=== PATIENT | female | born 1955 | race Caucasian/White ===

== ENCOUNTER 2017-08-07 16:55 | Emergency (ER) | payer OTHER ==
[~2017-08-07] VITALS: Ht 172.7 cm; Wt 78.1 kg
[~2017-08-07 16:55] MED LIST: OMEG10007 PO; ZOLP10TA6 PO; [UNRECOGNIZED DRUG - CODE] PO
[2017-08-07 16:56] VITALS: TEMP 37.2; Ht 172.7 cm; Wt 78.1 kg
[2017-08-07 17:13] VITALS: O2SAT 98
[2017-08-07] MEDS ORDERED: SODIUM CHLORIDE 0.9% 1000ML 1,000 ML IV ONE (17:15)
[2017-08-07 17:22] LABS: BASO % 0.3 %; BASO ABS # 0.02 K/uL (0-0.2); COMPLETE YES; EOS % 0.5 %; HEMATOCRIT 39.2 % (37-47); IG% 0.3 %; LYMPH % 32.8 %; LYMPH ABS # 2.47 K/uL (1.2-3.4); MEAN CELL VOLUME 87.5 fL (80-100); MEAN CORPUSCULAR HEMOGLOBIN 30.4 pg (25-34); MEAN CORPUSCULAR HGB CONC 34.7 g/dl (32-36); MEAN PLATELET VOLUME 9.9 fL (7.4-10.4); NEUT % 58.1 %; PLATELET COUNT 208 K/uL (130-400); RED BLOOD COUNT 4.48 M/uL (4.2-5.4); WHITE BLOOD COUNT 7.53 K/uL (4.8-10.8)
[2017-08-07 17:31] LABS: INR 0.9 (0.9-1.1); PROTHROMBIN TIME (PATIENT) 9.8 SECONDS (9.0-12.0)
[2017-08-07 17:33] LABS: POINT OF CARE TROPONIN I < 0.030 ng/ml (0-0.045)
--- NOTE | 2017-08-07 17:40 | DIAGNOSTIC IMAGING REPORT ---
CHEST ONE VIEW PORTABLE CLINICAL HISTORY: Atypical chest pain and leg swelling. COMPARISON STUDY: 06/11/2016 FINDINGS: The cardiac and mediastinal contours are normal. There is no evidence of focal pulmonary consolidation. There is no evidence of failure. No pleural effusions are visualized.[ IMPRESSION: No active disease in the chest. Electronically signed by: Krishna Woodall M.D. 08/07/2017 5:39 PM Dictated Date/Time: 08/07/2017 5:39 PM
[2017-08-07 17:57] LABS: BUN/CREATININE RATIO 18.1 (10-20); CALCIUM 8.8 mg/dl (8.5-10.1); CREATININE 0.97 mg/dl (0.60-1.20); POTASSIUM 3.8 mmol/L (3.5-5.1)
[2017-08-07] MEDS ORDERED: OPTIRAY 320 IV PRN (18:00)
--- NOTE | 2017-08-07 18:20 | DIAGNOSTIC IMAGING REPORT ---
ULTRASOUND VENOUS DOPPLER LWR EXT BILA CLINICAL HISTORY: Bilateral leg swelling. Recent plane flight. COMPARISON STUDY: No previous studies for comparison. FINDINGS: Real-time and color flow Doppler imaging were performed. Flow was seen within the femoral, popliteal and calf veins with no intraluminal thrombus demonstrated. The saphenous vein is patent. IMPRESSION: No evidence of lower extremity DVT. Electronically signed by: Krishna Woodall M.D. 08/07/2017 6:19 PM Dictated Date/Time: 08/07/2017 6:18 PM
--- NOTE | 2017-08-07 18:26 | DIAGNOSTIC IMAGING REPORT ---
CT ANGIOGRAM OF THE CHEST CLINICAL HISTORY: Shortness of breath. Elevated d-dimer. Recent airplane flight. COMPARISON STUDY: 06/11/2016 TECHNIQUE: Following the IV administration of 82 mL of Optiray-320, CT angiogram of the thorax was performed from the thoracic inlet to the lung bases utilizing the pulmonary embolus protocol. Images are reviewed in the axial, sagittal, and coronal planes. IV contrast was administered without complication. MIP imaging was performed. A dose lowering technique was utilized adhering to the principles of ALARA. CT DOSE: 241.64 mGy.cm FINDINGS: No pathologically enlarged axillary mediastinal or hilar lymph nodes were visualized. There was no evidence of thoracic aortic dilatation. There were no pulmonary artery filling defects to indicate acute pulmonary embolism. No pleural effusions are visualized. There are minimal dependent atelectatic changes present. There is pulmonary emphysema. There is no focal pulmonary consolidation. There is persistent right apical pleural-parenchymal scarring. There is a stable 2 mm dural based right middle lobe pulmonary nodule. There is a stable 3 mm right upper lobe pulmonary nodule. IMPRESSION: 1. No evidence of acute pulmonary embolism 2. No evidence of focal pulmonary consolidation 3. No evidence of pathologic adenopathy 4. Emphysema 5. Stable tiny right lung pulmonary nodules. No further follow-up is indicated. Electronically signed by: Krishna Woodall M.D. 08/07/2017 6:24 PM Dictated Date/Time: 08/07/2017 6:19 PM
[2017-08-07 18:54] VITALS: BP 142/84; PULSE 84; O2SAT 98
--- NOTE | 2017-08-09 14:05 | EMERGENCY ROOM VISIT NOTE ---
History First contact with patient: 16:59 Chief Complaint: SWELLING TO EXTREMITY Stated Complaint: LF FOOT SWOLLEN History of Present Illness The patient is a 62 year old female who presents to the Emergency Room with complaints of increasing swelling to her bilateral lower extremities over the past week. The patient states that she is having worsening swelling in her left leg when compared to the right. She does not have an injury or trauma. She does not report increased or change in activity. The patient states that she has been traveling via airplane recently. She will intermittently have vague episodes of chest discomfort, but they are often fleeting and resolve. The patient has not had fever or chills. No coughing. She has not taken anything [id number] for her symptoms which she rates a 2/10. Review of Systems More than 10 systems were reviewed and otherwise negative with the exception of history of present illness. Past Medical/Surgical History No pertinent chronic medical disease Family History FHx: VT FHx: cancer FHx: diabetes FHx: gallbladder disease FHx: hypertension FHx: kidney disease/stones FHx: pancreatitis FHx: seizures Social History Smoking Status: Never Smoker Alcohol Use: none Marital Status: Occupation Status: unemployed Current/Historical Medications Scheduled Docusate Sodium (Qc Stool Softener), 300 MG PO DAILY Scheduled PRN Zolpidem Tartrate (Zolpidem Tartrate), 10 MG PO HS PRN for Sleep Physical Exam Vital Signs Date Time Temp Pulse Resp B/P (MAP) Pulse Ox O2 Delivery O2 Flow Rate FiO2 08/07/17 18:54 84 20 142/84 98 08/07/17 18:40 71 20 142/84 96 Room Air 08/07/17 17:13 98 Room Air 08/07/17 16:56 37.2 85 18 133/85 96 Room Air Pain Rating (0-10): 0 Physical Exam VITALS: Vitals are noted on the nurse's note and reviewed by myself. Vital signs stable. GENERAL: Well-developed, well-nourished, white female, who is in no acute distress and resting comfortably. Patient is cooperative with the examination. NECK: Supple without nuchal rigidity. No lymphadenopathy. No thyromegaly. Cervical spine is nontender. HEART: Regular rate and rhythm without murmurs gallops or rubs. LUNGS: Clear to auscultation bilaterally without wheezes, rales or rhonchi. No retractions or accessory muscle use. ABDOMEN: Positive normal bowel sounds x 4. Soft, nontender, without masses or organomegaly. No guarding or rebound tenderness. MUSCULOSKELETAL: There is mild bilateral lower extremity edema with mild left calf tenderness. Pulses are intact distally. The patient is with full sensation and range of motion to large cavities. No obvious cellulitis or thrombophlebitis. No palpable cords. Medical Decision & Procedures ER Provider Diagnostic Interpretation: CHEST ONE VIEW PORTABLE CLINICAL HISTORY: Atypical chest pain and leg swelling. COMPARISON STUDY: 06/11/2016 FINDINGS: The cardiac and mediastinal contours are normal. There is no evidence of focal pulmonary consolidation. There is no evidence of failure. No pleural effusions are visualized.[ IMPRESSION: No active disease in the chest. CT ANGIOGRAM OF THE CHEST CLINICAL HISTORY: Shortness of breath. Elevated d-dimer. Recent airplane flight. COMPARISON STUDY: 06/11/2016 TECHNIQUE: Following the IV administration of 82 mL of Optiray-320, CT angiogram of the thorax was performed from the thoracic inlet to the lung bases utilizing the pulmonary embolus protocol. Images are reviewed in the axial, sagittal, and coronal planes. IV contrast was administered without complication. MIP imaging was performed. A dose lowering technique was utilized adhering to the principles of ALARA. CT DOSE: 241.64 mGy.cm FINDINGS: No pathologically enlarged axillary mediastinal or hilar lymph nodes were visualized. There was no evidence of thoracic aortic dilatation. There were no pulmonary artery filling defects to indicate acute pulmonary embolism. No pleural effusions are visualized. There are minimal dependent atelectatic changes present. There is pulmonary emphysema. There is no focal pulmonary consolidation. There is persistent right apical pleural-parenchymal scarring. There is a stable 2 mm dural based right middle lobe pulmonary nodule. There is a stable 3 mm right upper lobe pulmonary nodule. IMPRESSION: 1. No evidence of acute pulmonary embolism 2. No evidence of focal pulmonary consolidation 3. No evidence of pathologic adenopathy 4. Emphysema 5. Stable tiny right lung pulmonary nodules. No further follow-up is indicated. ULTRASOUND VENOUS DOPPLER LWR EXT BILA CLINICAL HISTORY: Bilateral leg swelling. Recent plane flight. COMPARISON STUDY: No previous studies for comparison. FINDINGS: Real-time and color flow Doppler imaging were performed. Flow was seen within the femoral, popliteal and calf veins with no intraluminal thrombus demonstrated. The saphenous vein is patent. IMPRESSION: No evidence of lower extremity DVT. Laboratory Results 08/07/17 17:10 Red Blood Count 4.48, Mean Corpuscular Volume 87.5, Mean Corpuscular Hemoglobin 30.4, Mean Corpuscular Hemoglobin Concent 34.7, Mean Platelet Volume 9.9, Neutrophils (%) (Auto) 58.1, Lymphocytes (%) (Auto) 32.8, Monocytes (%) (Auto) 8.0, Eosinophils (%) (Auto) 0.5, Basophils (%) (Auto) 0.3, Neutrophils # (Auto) 4.38, Lymphocytes # (Auto) 2.47, Monocytes # (Auto) 0.60, Eosinophils # (Auto) 0.04, Basophils # (Auto) 0.02 08/07/17 17:10 Test 08/07/17 17:10 08/07/17 17:13 White Blood Count 7.53 K/uL (4.8-10.8) Red Blood Count 4.48 M/uL (4.2-5.4) Hemoglobin 13.6 g/dL (12.0-16.0) Hematocrit 39.2 % (37-47) Mean Corpuscular Volume 87.5 fL (80-100) Mean Corpuscular Hemoglobin 30.4 pg (25-34) Mean Corpuscular Hemoglobin Concent 34.7 g/dl (32-36) Platelet Count 208 K/uL (130-400) Mean Platelet Volume 9.9 fL (7.4-10.4) Neutrophils (%) (Auto) 58.1 % Lymphocytes (%) (Auto) 32.8 % Monocytes (%) (Auto) 8.0 % Eosinophils (%) (Auto) 0.5 % Basophils (%) (Auto) 0.3 % Neutrophils # (Auto) 4.38 K/uL (1.4-6.5) Lymphocytes # (Auto) 2.47 K/uL (1.2-3.4) Monocytes # (Auto) 0.60 K/uL (0.11-0.59) Eosinophils # (Auto) 0.04 K/uL (0-0.5) Basophils # (Auto) 0.02 K/uL (0-0.2) RDW Standard Deviation 41.0 fL (36.4-46.3) RDW Coefficient of Variation 12.8 % (11.5-14.5) Immature Granulocyte % (Auto) 0.3 % Immature Granulocyte # (Auto) 0.02 K/uL (0.00-0.02) Prothrombin Time 9.8 SECONDS (9.0-12.0) Prothromb Time International Ratio 0.9 (0.9-1.1) Activated Partial Thromboplast Time 24.7 SECONDS (21.0-31.0) Partial Thromboplastin Ratio 1.0 Anion Gap 5.0 mmol/L (3-11) Est Creatinine Clear Calc Drug Dose 66.0 ml/min Estimated GFR () 72.5 Estimated GFR (Non- 62.6 BUN/Creatinine Ratio 18.1 (10-20) Calcium Level 8.8 mg/dl (8.5-10.1) Total Bilirubin 0.3 mg/dl (0.2-1) Aspartate Amino Transf (AST/SGOT) 31 U/L (15-37) Alanine Aminotransferase (ALT/SGPT) 46 U/L (12-78) Alkaline Phosphatase 103 U/L (45-117) Pro-B-Type Natriuretic Peptide 21 pg/ml (0-900) Total Protein 7.2 gm/dl (6.4-8.2) Albumin 3.6 gm/dl (3.4-5.0) Globulin 3.6 gm/dl (2.5-4.0) Albumin/Globulin Ratio 1.0 (0.9-2) Lipase 184 U/L (73-393) Bedside D-Dimer > 450 ng/mlFEU (0-450) Bedside Troponin I < 0.030 ng/ml (0-0.045) Medications Administered Medications (Trade) Dose Ordered Sig/Anabela Route Start Time Stop Time Status Last Admin Dose Admin Sodium Chloride 1,000 ml @ 999 mls/hr Q1H1M ONCE IV 08/07/17 17:15 08/07/17 18:15 DC 08/07/17 17:19 999 MLS/HR ECG Change: Normal sinus rhythm @70 bpm Right bundle branch block Abnormal ECG When compared with ECG of 11-JUN-2016 16:18, No significant change was found Confirmed by ANTHONY VILLAFANA MD ([id number]) on 08/08/2017 9:26:34 AM ED Course Physical exam and history were performed. Nursing notes, EMR, and Medication List were personally reviewed. Patient appears to have bilateral lower leg swelling with atypical intermittent chest discomfort. EKG was performed was a little sinus rhythm without acute ST elevation as above. IV access was established and labs were obtained. The patient was hydrated with normal saline. Chest x-ray and ultrasound were performed and the patient was placed on vehicle monitor technician. The patient's blood work is as above and was reviewed. She does not have a significant elevated white blood cell count, gross anemia, bandemia, or significant electrolyte imbalance. Troponin 1 is negative. D-dimer was elevated. Chest x-ray does not show acute process. Ultrasound was without evidence of DVT. Because of her travel symptoms and elevated dimer with atypical chest pain and did elect to perform a CT angiogram of the chest. CT scan did not show evidence of PE or other significant findings. They did show incidental pulmonary nodules, which are evidently stable and will not require further follow-up. This was discussed with the patient. Overall the patient appears nontoxic and seems well for discharge home. Her symptoms certainly could be a dependent edema. She does not appear to have infection or DVT/PE at this time. I do recommend that she follow closely with her primary care physician for further care and management. She was otherwise invited back to the ER with any new, worsening, or concerning symptoms. The chart was completed utilizing [employer] Voice Recognition Software. Grammatical errors, random word insertions, pronoun errors, and incomplete sentences are an occasional consequence of this system due to software limitations, ambient noise, and hardware issues. Any formal questions or concerns about the content, text, or information contained within the body of this dictation should be directly addressed to the provider for clarification. . Medical Decision Differential diagnosis includes, but is not limited to: Myocardial infarction, dysrhythmia, pericarditis, pneumothorax, aortic aneurysm/dissection, DVT/PE, anxiety, GERD, PUD, electrolyte imbalance, thyroid disorder, pneumonia, bronchitis, pancreatitis, and others Medication Reconcilliation Current Medication List: was personally reviewed by me Blood Pressure Screening Patient's blood pressure: Elevated blood pressure Blood pressure disposition: Did not require urgent referral Impression Primary Impression: Swelling of left extremity Additional Impression: Swelling of right extremity Departure Information Dispostion Home / Self-Care Condition GOOD Referrals Km Canas M.D. (PCP) Forms HOME CARE DOCUMENTATION FORM, IMPORTANT VISIT INFORMATION Patient Instructions My [facility] Additional Instructions You were seen and evaluated today on an emergency basis only. This is not a substitute for, or an effort to provide, complete comprehensive medical care. It is not possible to recognize and treat all injuries or illnesses in a single emergency department visit. For this reason it is recommended that you followup with your primary care physician in the next 3-5 days for recheck of your condition. You are welcome to return to the emergency department anytime with new, worsening, or concerning symptoms. Problem Qualifiers
== END 2017-08-07 18:55 | disposition home or self-care (01) ==
LOC: C.EDB 16:55 → C.EDA 18:55
DX: R60.0 Localized edema (principal); I45.10 Unspecified right bundle-branch block; R91.8 Other nonspecific abnormal finding of lung field; Z83.3 Family history of diabetes mellitus; Z82.49 Family history of ischemic heart disease and other diseases of the circulatory system; Z84.1 Family history of disorders of kidney and ureter; Z82.0 Family history of epilepsy and other diseases of the nervous system

== ENCOUNTER 2021-02-18 20:10 | Inpatient (IN) ==
[2021-02-18] MEDS ORDERED: ONDANSETRON INJ 2 MG/ML 2 ML VIAL IV STA (20:32)
[2021-02-18] MEDS ORDERED: MoRPHine SULFATE 4 MG/ML 1 ML CARP\\VIAL IV STA ×2 (20:32→22:21)
--- NOTE | 2021-02-18 20:41 | Emergency Department Note ---
Impression & Plan COVID-19, Chest pain, Pneumonia, Hypoxia ED Provider Note NAME: ARI CUI AGE: 65 SEX: F : 1955 ARRIVES VIA: Ambulance INFORMANT: Patient, ED PROVIDER(S): Ok Perez DO CHIEF COMPLAINT: Headache HPI: The patient is a 65-year-old female who presented to the emergency department for an evaluation of multiple complaints. The patient has been having symptoms for approximately 6 or 7 days. She describes a headache photosensitivity body aches chest pain difficulty breathing and cough. She states symptoms are moderate to severe. The patient was seen at [facility] this evening and had a Covid swab that was positive. She was then sent to the emergency department by ambulance because of her symptoms and because her blood pressure was very high. The patient states that she has been compliant with her outpatient medication regimen. She denies having any vomiting or GI symptoms at this time. She has had intermittent episodes of fever. The patient states her symptoms are moderate to severe. The patient is currently not been vaccinated for COVID-19. ROS: See above HPI for pertinent positives & negatives. A total of 10 systems reviewed and were otherwise negative. PAST MEDICAL HISTORY: See Below PAST SURGICAL HISTORY: See Below FAMILY HISTORY: See Below SOCIAL HISTORY: See Below HOME MEDICATIONS: See Below ALLERGIES: See Below VITALS: See Below PHYSICAL EXAMINATION: GENERAL: The patient is awake and alert. She is very anxious appearing. EYES: The conjunctivae are clear. The pupils are round and reactive. EARS, NOSE, MOUTH AND THROAT: The nose is without any evidence of any deformity. NECK: The neck is nontender and supple. RESPIRATORY: Diminished breath sounds are noted throughout. There was rhonchi noted throughout right greater than left. There is no tachypnea or conversational dyspnea. CARDIOVASCULAR: Regular rate and rhythm noted there no murmurs rubs or gallops normal S1 normal S2. GASTROINTESTINAL: The abdomen is soft. Abdomen is nontender. MUSCULOSKELETAL/EXTREMITIES: There is no evidence of gross deformity full range of motion is noted in the hips and shoulders. SKIN: There is no obvious evidence of any rash. There are no petechiae, pallor or cyanosis noted. NEUROLOGIC: Patient is awake alert and oriented x3 strength is symmetric pat ellar reflexes are 2+ bilaterally MEDICAL DECISION MAKING: The patient is an 65-year-old female who presented to the emergency department for an evaluation of body aches and fever. The patient was found to have signs of pneumonia on chest x-ray. She was treated with IV fluids and IV antibiotics in the emergency department. She also became hypoxic while she was in the emergency department. She is positive for COVID-19 however her infiltrate does not appear to be consistent with a typical COVID-19 infiltrate so she was also considered for bacterial pneumonia. I discussed the patient's laboratory and radiographic studies with her. I also discussed her case with the on-call [facility] hospitalist. They have agreed to evaluate the patient in the emergency department for further management and disposition. Triage Nursing notes reviewed. Prior medical records reviewed Vital Signs: reviewed and remarkable for hypoxia, fever, intermittent bradycardia. Differential diagnosis: Viral syndrome, otitis, pharyngitis, pneumonia, influenza, meningitis, urinary tract infection, sepsis, bacteremia, as well as other pathologies. ER treatment provided: See below Diagnostics interpreted by me: ECG: EKG was obtained in the emergency department. My interpretation is normal sinus rhythm at 69 bpm. There were no PVCs. A right bundle branch block pattern was noted. This was compared to a tracing from November 142017. There is an increase in the ventricular rate however no other significant changes were noted. A second EKG was obtained in the emergency department because of bradycardia. A second EKG reveals normal sinus rhythm at 63 bpm. Right bundle branch block was appreciated. There was no significant change compared to the earlier tracing. Cardiac Monitoring: An order was placed for continuous cardiac monitoring. The monitor shows a rate of 75 beats per with sinus rhythm. Laboratory studies: As stated above and show below. Imaging studies: See below Consultation(s): [id number]: I discussed this case with Dr. Waldron who is on-call for the [facility] hospitalist group. Past Med/Surg History Medical History (Updated 02/18/21 @ 23:30 by Ok Perez DO) GERD (gastroesophageal reflux disease) Hyperlipidemia Radiculitis of left cervical region Vitamin D deficiency Surgical History History of cholecystectomy (~06/20/15) Hx of colonoscopy (04/2008) Hx of eye surgery Hx of tubal ligation Family History Sister Breast cancer Cancer Colorectal cancer Hypertension Ovarian cancer Brother Cancer Colorectal cancer Father Cancer Diabetes Son Colorectal cancer Mother Dementia Hypertension Denies family history of Prostate cancer Myocardial infarction Social History Smoking Status: Never smoker Tobacco Type: Cigarettes Age Started Using Tobacco: 13; Age Quit Using Tobacco: 58; packs per day: 0.5; Years Smoked: 45; Cigarettes Per Day: 10-15; Number of Years Since Quit: 6; Second Hand Exposure: No; Hx Alcohol Use: No Hx Substance Use: Yes Preferred Language: [place] Visual Impairment: No Limitations Hearing Ability: Normal marital status: Current Living Situation: Spouse and Family current occupational status: unemployed Feels Safe at Home: Yes Dental Care, Regularly: No Physical Activity Frequency: Does not Exercise Seatbelt Use: always Allergies Allergies Allergy/AdvReac Type Severity Reaction Status Date / Time No Known Allergies Allergy NONE Verified 02/18/21 21:08 Home Meds Home Medications Medication Instructions Recorded Confirmed docusate sodium 300 mg PO DAILY 11/14/18 02/18/21 ibuprofen 400 mg PO BID PRN 11/14/18 02/18/21 acetaminophen [Tylenol] 650 mg PO DIRECTED PRN 02/18/21 02/18/21 ergocalciferol (vitamin D2) 50,000 unit PO WK 02/18/21 02/18/21 loratadine-pseudoephedrine 1 tab PO Q12H PRN 02/18/21 02/18/21 [Claritin-D 12 Hour] naproxen sodium [Aleve] 220 - 440 mg PO DIRECTED PRN 02/18/21 02/18/21 Previous Rx's Medication Instructions Recorded albuterol sulfate 90 mcg/actuation 2 puffs INH QID PRN #8.5 gm 04/18/20 aerosol inhaler zolpidem 10 mg tablet 10 mg PO HS PRN #30 tab 07/18/20 Results & Data (ED) Vital Signs Vital Signs - 24 hr 02/18/21 20:30 02/18/21 20:31 02/18/21 20:32 Temperature Temperature Source Pulse Rate 67 69 68 Pulse Rate [Apical] 67 Pulse Rate from SpO2 Sensor 67 69 Respiratory Rate 20 18 19 Respiratory Effort / Characteristics Non-Labored Spontaneous Respiratory Depth Normal Respiratory Pattern Regular Blood Pressure 147/77 H Blood Pressure [Right Arm] 147/77 H Blood Pressure Mean 100 Blood Pressure Mean [Right Arm] 100 Pulse Oximetry 92 92 92 Oxygen Delivery Method Room Air Sepsis Recent Fever Within 48 Hours Sepsis New/Unexplained Change in Mental Status Sepsis Action Taken by Nursing 02/18/21 20:39 02/18/21 21:00 02/18/21 21:30 Temperature 38.0 C H Temperature Source Oral Pulse Rate 65 70 50 L Pulse Rate [Apical] Pulse Rate from SpO2 Sensor 67 49 L Respiratory Rate 20 24 19 Respiratory Effort / Characteristics Non-Labored Spontaneous Respiratory Depth Normal Respiratory Pattern Regular Blood Pressure 147/77 H 130/56 L 107/54 L Blood Pressure [Right Arm] Blood Pressure Mean 100 80 71 Blood Pressure Mean [Right Arm] Pulse Oximetry 93 91 91 Oxygen Delivery Method Room Air Sepsis Recent Fever Within 48 Hours No Sepsis New/Unexplained Change in Mental Status No Sepsis Action Taken by Nursing No Action Required 02/18/21 22:00 02/18/21 22:29 02/18/21 22:30 Temperature Temperature Source Pulse Rate 55 L 58 L 62 Pulse Rate [Apical] Pulse Rate from SpO2 Sensor 55 L 63 Respiratory Rate 20 19 18 Respiratory Effort / Characteristics Respiratory Depth Respiratory Pattern Blood Pressure 141/73 H 141/73 H 146/71 H Blood Pressure [Right Arm] Blood Pressure Mean 95 95 96 Blood Pressure Mean [Right Arm] Pulse Oximetry 93 92 92 Oxygen Delivery Method Sepsis Recent Fever Within 48 Hours Sepsis New/Unexplained Change in Mental Status Sepsis Action Taken by Nursing 02/18/21 22:31 Temperature Temperature Source Pulse Rate 63 Pulse Rate [Apical] Pulse Rate from SpO2 Sensor 63 Respiratory Rate 19 Respiratory Effort / Characteristics Respiratory Depth Respiratory Pattern Blood Pressure 146/71 H Blood Pressure [Right Arm] Blood Pressure Mean 96 Blood Pressure Mean [Right Arm] Pulse Oximetry 87 L Oxygen Delivery Method Room Air Sepsis Recent Fever Within 48 Hours Sepsis New/Unexplained Change in Mental Status Sepsis Action Taken by Skilled Nursing Medications Current Medication List: was personally reviewed by me Laboratory Data Attestation: I reviewed the patient's lab results. Result diagrams: 02/18/21 20:48 02/18/21 20:48 Lab Results 02/18/21 02/18/21 02/18/21 Range/Units 20:48 20:48 20:48 WBC 4.93 (4.8-10.8) K/uL RBC 4.72 (4.2-5.4) M/uL Hgb 14.2 (12.0-16.0) g/dL Hct 40.8 (37-47) % MCV 86.4 (80-100) fL MCH 30.1 (25-34) pg MCHC 34.8 (32-36) g/dL RDW Std Deviation 42.9 (36.4-46.3) fL RDW Coeff of Josue 13.4 (11.5-14.5) % Plt Count 150 (130-400) K/uL MPV 9.7 (7.4-10.4) fL Immature Gran % (Auto) 0.4 % Neut % (Auto) 78.3 % Lymph % (Auto) 13.6 % Mckean % (Auto) 7.5 % Eos % (Auto) 0.0 % Baso % (Auto) 0.2 % Neut # (Auto) 3.86 (1.4-6.5) K/uL Lymph # (Auto) 0.67 L (1.2-3.4) K/uL Mckean # (Auto) 0.37 (0.11-0.59) K/uL Eos # (Auto) 0.00 (0-0.5) K/uL Baso # (Auto) 0.01 (0-0.2) K/uL Immature Gran # (Auto) 0.02 (0.00-0.02) K/uL PT 9.6 (9.0-12.0) Seconds INR 0.9 (0.9-1.1) APTT 28.8 (21.0-31.0) Seconds PTT Ratio 1.1 D-Dimer 570 H* (0-500) ug/L FEU Sodium 137 (136-145) mmol/L Potassium 3.3 L (3.5-5.1) mmol/L Chloride 105 (98-107) mmol/L Carbon Dioxide 26 (21-32) mmol/L Anion Gap 6.0 (3-11) BUN 13 (7-18) mg/dl Creatinine 0.77 (0.6-1.2) mg/dl Est Cr Clr Drug Dosing 82.0 ml/min Est GFR ( Amer) 93.9 Est GFR (Non-Af Amer) 81.0 BUN/Creatinine Ratio 17.1 (10-20) Glucose 87 (70-99) mg/dl Calcium 7.9 L (8.5-10.1) mg/dl Total Bilirubin 0.3 (0.2-1) mg/dl AST 22 (15-37) U/L ALT 26 (12-78) U/L Alkaline Phosphatase 106 (45-117) U/L Troponin I < 0.015 (0-0.045) ng/ml Total Protein 6.7 (6.4-8.2) gm/dl Albumin 3.2 L (3.4-5.0) gm/dl Globulin 3.5 (2.5-4.0) gm/dl Albumin/Globulin Ratio 0.9 (0.9-2) Lipase 182 (73-393) U/L COVID-19 Eval Order SARS-CoV-2 (PCR) (Negative) Influenza Type A (PCR) (Neg) Influenza Type B (PCR) (Neg) RSV (RT-PCR) (Neg) 02/18/21 02/18/21 Range/Units 21:47 21:47 WBC (4.8-10.8) K/uL RBC (4.2-5.4) M/uL Hgb (12.0-16.0) g/dL Hct (37-47) % MCV (80-100) fL MCH (25-34) pg MCHC (32-36) g/dL RDW Std Deviation (36.4-46.3) fL RDW Coeff of Josue (11.5-14.5) % Plt Count (130-400) K/uL MPV (7.4-10.4) fL Immature Gran % (Auto) % Neut % (Auto) % Lymph % (Auto) % Mckean % (Auto) % Eos % (Auto) % Baso % (Auto) % Neut # (Auto) (1.4-6.5) K/uL Lymph # (Auto) (1.2-3.4) K/uL Mckean # (Auto) (0.11-0.59) K/uL Eos # (Auto) (0-0.5) K/uL Baso # (Auto) (0-0.2) K/uL Immature Gran # (Auto) (0.00-0.02) K/uL PT (9.0-12.0) Seconds INR (0.9-1.1) APTT (21.0-31.0) Seconds PTT Ratio D-Dimer (0-500) ug/L FEU Sodium (136-145) mmol/L Potassium (3.5-5.1) mmol/L Chloride (98-107) mmol/L Carbon Dioxide (21-32) mmol/L Anion Gap (3-11) BUN (7-18) mg/dl Creatinine (0.6-1.2) mg/dl Est Cr Clr Drug Dosing ml/min Est GFR ( Amer) Est GFR (Non-Af Amer) BUN/Creatinine Ratio (10-20) Glucose (70-99) mg/dl Calcium (8.5-10.1) mg/dl Total Bilirubin (0.2-1) mg/dl AST (15-37) U/L ALT (12-78) U/L Alkaline Phosphatase (45-117) U/L Troponin I (0-0.045) ng/ml Total Protein (6.4-8.2) gm/dl Albumin (3.4-5.0) gm/dl Globulin (2.5-4.0) gm/dl Albumin/Globulin Ratio (0.9-2) Lipase (73-393) U/L COVID-19 Eval Order [facility] at [facility] SARS-CoV-2 (PCR) POSITIVE A* (Negative) Influenza Type A (PCR) Negative (Neg) Influenza Type B (PCR) Negative (Neg) RSV (RT-PCR) Negative (Neg) Administered Medications Discontinued Medications Dexamethasone Sodium Phosphate (DexamethasonePf 10 Mg/Ml Vial) 10 mg IV NOW ONE Stop: 02/18/21 21:43 Last Admin: 02/18/21 22:00 Dose: 10 mg Documented by: [id number] Sodium Chloride (Nss 1000ml) 1,000 mls @ 999 mls/hr IV .Q1H1M ONE Stop: 02/18/21 22:25 Last Infusion: 02/18/21 23:05 Dose: 0 mls/hr Documented by: [id number] Admin: 02/18/21 22:01 Dose: 999 mls/hr Documented by: [id number] Sodium Chloride (Nss 1000ml) 1,000 mls @ 999 mls/hr IV .Q1H1M ONE Stop: 02/18/21 22:41 Last Infusion: 02/18/21 22:54 Dose: 0 mls/hr Documented by: [id number] Admin: 02/18/21 21:49 Dose: 999 mls/hr Documented by: [id number] Piperacillin Sod/Tazobactam Sod (Zosyn) 4.5 gm in 120 mls @ 240 mls/hr IV NOW ONE Stop: 02/18/21 22:11 Last Infusion: 02/18/21 22:30 Dose: 0 mls/hr Documented by: [id number] Admin: 02/18/21 22:00 Dose: 240 mls/hr Documented by: [id number] Morphine Sulfate (Morphine Sulfate 4 Mg/Ml 1 Ml Carp\Vial) 4 mg IV NOW STA Stop: 02/18/21 20:33 Last Admin: 02/18/21 20:44 Dose: 4 mg Documented by: [id number] Morphine Sulfate (Morphine Sulfate 4 Mg/Ml 1 Ml Carp\Vial) 4 mg IV NOW STA Stop: 02/18/21 22:22 Last Admin: 02/18/21 22:35 Dose: 4 mg Documented by: [id number] Ondansetron HCl (Ondansetron Inj 2 Mg/Ml 2 Ml Vial) 4 mg IV NOW STA Stop: 02/18/21 20:33 Last Admin: 02/18/21 20:44 Dose: 4 mg Documented by: [id number] Imaging Data Radiologist's Impression: Chest X-Ray 02/18/21 20:32 XR chest 1V portable HISTORY: Atypical Chest Pain COMPARISON: Chest 11/14/2018. FINDINGS: There is a hazy peripheral right upper lobe airspace opacity. No pneumothorax. No pleural effusions. The heart is top normal in size. The left lung is clear. No evidence for pulmonary edema. Old, healed left-sided rib fracture, unchanged. IMPRESSION: A new hazy right upper lobe airspace opacity consistent with a pneumonia. 1-2 month chest x-ray follow-up recommended to ensure resolution. ACT 112: Negative or not required by law. Electronically signed by: Humberto Wells M.D. 02/18/2021 9:02 PM Discharge Plan Visit Data Chief Complaint: Illness Stated Complaint: COVID + CP ED Provider: Ok Perez Discharge Problem: COVID-19, Chest pain, Pneumonia, Hypoxia Patient Disposition: Being Evaluated by Hospitalist Condition: Good Discharge Instructions Krames/Other Patient Handouts: 2019-nCoV Forms Stand Alone Forms: My Mobile Card Prescriptions Prescriptions: No Action zolpidem 10 mg tablet 10 mg PO HS PRN (Reason: Insomnia) Qty: 30 RF: 5 albuterol sulfate [ProAir HFA] 90 mcg/actuation HFA aerosol inhaler 2 puffs INH QID PRN (Reason: shortness of breath) Qty: 8.5 RF: 2 ibuprofen 400 mg Tablet 400 mg PO BID PRN (Reason: Pain) RF: 0 docusate sodium 100 mg Capsule 300 mg PO DAILY RF: 0 acetaminophen [Tylenol] 325 mg Tablet 650 mg PO DIRECTED PRN (Reason: FEVER/PAIN) RF: 0 naproxen sodium [Aleve] 220 mg Tablet 220 - 440 mg PO DIRECTED PRN (Reason: Pain) RF: 0 Claritin-D 12 Hour 5-120 mg tablet extended release 12 hr 1 tab PO Q12H PRN (Reason: Congestion) RF: 0 ergocalciferol (vitamin D2) 1,250 mcg (50,000 unit) capsule 50,000 unit PO WK RF: 0 Referrals Referrals: Km Canas III, MD [Primary Care Provider] - Discharge Problem: Chest pain Qualifiers: Chest pain type: unspecified Qualified Code(s): R07.9 - Chest pain, unspecified Pneumonia Qualifiers: Pneumonia type: due to unspecified organism Laterality: right Lung location: upper lobe of lung Qualified Code(s): J18.9 - Pneumonia, unspecified organism
[2021-02-18 20:57] LABS: Basophils # (auto) 0.01 K/uL (0-0.2); Basophils % (auto) 0.2 %; Hematocrit (blood only) 40.8 % (37-47); Hemoglobin 14.2 g/dL (12.0-16.0); Immature Granulocytes # (auto) 0.02 K/uL (0.00-0.02); Immature Granulocytes % (auto) 0.4 %; Lymphocytes # (auto) 0.67 K/uL (1.2-3.4); Lymphocytes % (auto) 13.6 %; Mean Corpuscular Hemoglobin 30.1 pg (25-34); Mean Corpuscular Hgb Conc 34.8 g/dL (32-36); Mean Corpuscular Volume 86.4 fL (80-100); Mean Platelet Volume 9.7 fL (7.4-10.4); Monocytes # (auto) 0.37 K/uL (0.11-0.59); Monocytes % (auto) 7.5 %; Neutrophils # (auto) 3.86 K/uL (1.4-6.5); Neutrophils % (auto) 78.3 %; Platelet Count 150 K/uL (130-400); RDW Coefficient of Variation 13.4 % (11.5-14.5); RDW Standard Deviation 42.9 fL (36.4-46.3); Red Blood Count 4.72 M/uL (4.2-5.4); White Blood Count 4.93 K/uL (4.8-10.8)
--- NOTE | 2021-02-18 21:03 | XRay Report ---
XR chest 1V portable HISTORY: Atypical Chest Pain COMPARISON: Chest 11/14/2018. FINDINGS: There is a hazy peripheral right upper lobe airspace opacity. No pneumothorax. No pleural e ffusions. The heart is top normal in size. The left lung is clear. No evidence for pulmonary edema. O ld, healed left-sided rib fracture, unchanged. IMPRESSION: A new hazy right upper lobe airspace opacity consistent with a pneumonia. 1-2 month chest x-ray follo w-up recommended to ensure resolution. ACT 112: Negative or not required by law. Electronically signed by: Humberto Wells M.D. 02/18/2021 9:02 PM
[2021-02-18 21:08] LABS: INR 0.9 (0.9-1.1); Partial Thromboplastin Ratio 1.1; Partial Thromboplastin Time 28.8 Seconds (21.0-31.0); Prothrombin Time 9.6 Seconds (9.0-12.0)
[2021-02-18 21:13] LABS: Alanine Aminotransferase 26 U/L (12-78); Albumin Level 3.2 gm/dl (3.4-5.0); Aspartate Aminotransferase 22 U/L (15-37); BUN Creatinine Ratio 17.1 (10-20); Blood Urea Nitrogen 13 mg/dl (7-18); Calcium 7.9 mg/dl (8.5-10.1); Carbon Dioxide 26 mmol/L (21-32); Chloride 105 mmol/L (98-107); Est GFR (African American) 93.9; Glucose 87 mg/dl (70-99); Lipase 182 U/L (73-393); Potassium 3.3 mmol/L (3.5-5.1); Sodium 137 mmol/L (136-145)
[2021-02-18 21:15] LABS: D Dimer 570 ug/L FEU (0-500)
[2021-02-18 21:18] LABS: Albumin Globulin Ratio 0.9 (0.9-2); Alkaline Phosphatase 106 U/L (45-117); Bilirubin,Total 0.3 mg/dl (0.2-1); Globulin 3.5 gm/dl (2.5-4.0); Total Protein 6.7 gm/dl (6.4-8.2); Troponin I < 0.015 ng/ml (0-0.045)
[2021-02-18] MEDS ORDERED: SODIUM CHLORIDE 0.9% 1000ML 1,000 ML IV ONE ×2 (21:25→21:41)
[2021-02-18] MEDS ORDERED: dexAMETHasone**PF** 10 MG/ML VIAL IV ONE (21:42)
[2021-02-18] MEDS ORDERED: PIPERACILL/TAZOBAC CONSULT ACTIVE PRN (21:42)
[2021-02-18] MEDS ORDERED: PIPERACILLIN/TAZOBACTAM 4.5 GM/120 ML BAG IV ONE (21:42)
[2021-02-18 22:37] LABS: Influenza A virus by PCR Negative (Neg); Influenza B virus by PCR Negative (Neg); RSV by PCR Negative (Neg)
[2021-02-18 22:47] LABS: SARS CoV2 RNA(COVID-19) InHosp POSITIVE (Negative)
--- NOTE | 2021-02-18 23:08 | History & Physical Report ---
Date of Service February 18, 2021 Assessment & Plan (1) COVID-19: 65yo C female presenting with Covid-19 pneumonia. Patient is febrile, acute hypoxic respiratory failure with SpO2 of 87% on room air. Labs are significant for lymphopenia, Ddimer of 570 which is below threshold for age adjusted value. CXR with RUL airspace density concerning for PNA. -Admit to medical floor with telemetry monitoring -Maintain Covid-19 isolation precautions - Airborne and Contact -Check BNP, Procalcitonin, Ferritin, CK, LDH and CRP -Supplemental O2 as needed to maintain SpO2 > 96% -Encourage patient proning as tolerated -Dexamethasone 6mg IV daily - patient received 10mg dose in ER -Remdesivir x 5 day per protocol. AST/ALT and renal function are within normal limits -Tylenol PRN pain or fever -Tessalon PRN cough -Albuterol HFA PRN SOB -Oxycodone PRN pain not relieved by Tylenol -Lovenox 40mg BID for DVT ppx Present on Admission?: Yes (2) Abdominal pain: Patient with history of abdominal pain. LFTs and Lipase WNL. Suspect GERD contributing. Abdomen is soft, tender but non-acute. -Maalox PRN -Repeat LFTs in AM Present on Admission?: Yes (3) Arrhythmia: Patient with episodes of regularly irregular grouped beating occurring in couplets and occasionally triplets. Suspect Wenkebach or ectopic atrial focus? Patient states she was first told that she had a "funny rhythm" 20 years ago. She has never seen a corporate administrative assistant before. -Telemetry monitoring -Maintain electrolytes -Consider Cardiology evaluation Present on Admission?: Yes (4) GERD (gastroesophageal reflux disease): Chronic. Suspect GERD is somewhat contributing to patients upper abdominal pain -Maalox PRN Present on Admission?: Yes (5) Vitamin D deficiency: Chronic -Continue weekly supplementation F/E/N - Patient given IVF in ER. Encourage PO intake. K repletion with Kdur 40mEq, Regular diet as tolerated Ppx - Lovenox 40 BID Code - Full per discussion with patient DIspo - Admit to medical with telemetry Present on Admission?: Yes History of Present Illness Chief Complaint: body pain, headache Primary Care Provider: Km Canas MD Courtney Torre is a 65yo female presenting with diffuse body aches, cough, SOB. Patient began developing symptoms appx 3 days ago - body aches, headache, chest pain, cough productive for yellow sputum and abdominal pain. She had some vomi ting as well. Symptoms persisted. She was tested for Covid-19 today at [facility] and found to be positive. She was sent to [facility] because her blood pressure was reportedly elevated. Patient's main complaint at this time is upper abdominal pain and muscle pain diffusely. Patient febrile in the ER at 38. She is bradycardic, BP stable. RR of 19 saturating 87% on room air ER Course: Dexamethasone, Morphine, Zofran, Zosyn Allergies Allergy/AdvReac Type Severity Reaction Status Date / Time No Known Allergies Allergy NONE Verified 02/18/21 21:08 Home Medications Medication Instructions Recorded Confirmed Type docusate sodium 300 mg PO DAILY 11/14/18 02/18/21 History ibuprofen 400 mg PO BID PRN 11/14/18 02/18/21 History albuterol sulfate 90 mcg/actuation 2 puffs INH QID PRN #8.5 gm 04/18/20 02/18/21 Rx aerosol inhaler zolpidem 10 mg tablet 10 mg PO HS PRN #30 tab 07/18/20 02/18/21 Rx acetaminophen [Tylenol] 650 mg PO DIRECTED PRN 02/18/21 02/18/21 History ergocalciferol (vitamin D2) 50,000 unit PO WK 02/18/21 02/18/21 History loratadine-pseudoephedrine 1 tab PO Q12H PRN 02/18/21 02/18/21 History [Claritin-D 12 Hour] naproxen sodium [Aleve] 220 - 440 mg PO DIRECTED PRN 02/18/21 02/18/21 History Past Med/Surg History Medical History (Updated 02/18/21 @ 23:24 by Shantel Waldron DO) GERD (gastroesophageal reflux disease) Hyperlipidemia Radiculitis of left cervical region Vitamin D deficiency Surgical History History of cholecystectomy (~06/20/15) Hx of colonoscopy (04/2008) Hx of eye surgery Hx of tubal ligation Family History Sister Breast cancer Cancer Colorectal cancer Hypertension Ovarian cancer Brother Cancer Colorectal cancer Father Cancer Diabetes Son Colorectal cancer Mother Dementia Hypertension Denies family history of Prostate cancer Myocardial infarction Social History Smoking Status: Never smoker Tobacco Type: Cigarettes Age Started Using Tobacco: 13; Age Quit Using Tobacco: 58; packs per day: 0.5; Years Smoked: 45; Cigarettes Per Day: 10-15; Number of Years Since Quit: 6; Second Hand Exposure: No; Hx Alcohol Use: No Hx Substance Use: Yes Preferred Language: Fijian Visual Impairment: No Limitations Hearing Ability: Normal marital status: Current Living Situation: Spouse and Family current occupational status: unemployed Feels Safe at Home: Yes Dental Care, Regularly: No Physical Activity Frequency: Does not Exercise Seatbelt Use: always Review of Systems Review of Systems: All systems reviewed & are unremarkable except as noted in HPI & below +CP, palpitations, cough, SOB +Headache, photophobia +Muscle pains +Abdominal pain Physical Exam Physical Exam: General: patient resting comfortably with towel over her head, alert and appropriate Skin: warm, dry, intact, no rashes or lesions HEENT: NC/AT, external ear normal to inspection and nontender, nares patent, moist mucus membranes, dentition intact, no oropharyngeal lesions, neck supple, trachea midline, no LAD, no thyromegaly, no JVD Heart: +S1/S2, regular with ectopy, no m/r/g Lungs: equal air entry bilaterally, crackles in left base, diffuse end- expiratory wheezing in bilateral posterior lung montesinos Abd: +BS, soft, ND, tender to palpation in epigastric region, no hakan s/organomegaly/ascites Ext: warm, 2+ pulses in UE/LE bilaterally, no clubbing/cyanosis or edema Neuro: nonfocal, patient AA&O x 4, speech intact, no facial droop, moving all extremities on command with equal strength 5/5 Results & Data Results & Data ([facility]) Vital Signs (Past 12 Hours) Vital Signs Temp Pulse Pulse Resp BP BP Pulse Ox 02/18/21 22:31 63 19 146/71 H 87 L 02/18/21 22:30 62 18 146/71 H 92 02/18/21 22:29 58 L 19 141/73 H 92 02/18/21 22:00 55 L 20 141/73 H 93 02/18/21 21:30 50 L 19 107/54 L 91 02/18/21 21:00 70 24 130/56 L 91 02/18/21 20:39 38.0 C H 65 20 147/77 H 93 02/18/21 20:32 68 19 92 02/18/21 20:31 69 18 147/77 H 92 02/18/21 20:30 67 67 20 147/77 H 92 Laboratory Results Lab Results 02/18/21 02/18/21 02/18/21 Range/Units 20:48 20:48 20:48 WBC 4.93 (4.8-10.8) K/uL RBC 4.72 (4.2-5.4) M/uL Hgb 14.2 (12.0-16.0) g/dL Hct 40.8 (37-47) % MCV 86.4 (80-100) fL MCH 30.1 (25-34) pg MCHC 34.8 (32-36) g/dL RDW Std Deviation 42.9 (36.4-46.3) fL RDW Coeff of Josue 13.4 (11.5-14.5) % Plt Count 150 (130-400) K/uL MPV 9.7 (7.4-10.4) fL Immature Gran % (Auto) 0.4 % Neut % (Auto) 78.3 % Lymph % (Auto) 13.6 % [place] % (Auto) 7.5 % Eos % (Auto) 0.0 % Baso % (Auto) 0.2 % Neut # (Auto) 3.86 (1.4-6.5) K/uL Lymph # (Auto) 0.67 L (1.2-3.4) K/uL [place] # (Auto) 0.37 (0.11-0.59) K/uL Eos # (Auto) 0.00 (0-0.5) K/uL Baso # (Auto) 0.01 (0-0.2) K/uL Immature Gran # (Auto) 0.02 (0.00-0.02) K/uL PT 9.6 (9.0-12.0) Seconds INR 0.9 (0.9-1.1) APTT 28.8 (21.0-31.0) Seconds PTT Ratio 1.1 D-Dimer 570 H* (0-500) ug/L FEU Sodium 137 (136-145) mmol/L Potassium 3.3 L (3.5-5.1) mmol/L Chloride 105 (98-107) mmol/L Carbon Dioxide 26 (21-32) mmol/L Anion Gap 6.0 (3-11) BUN 13 (7-18) mg/dl Creatinine 0.77 (0.6-1.2) mg/dl Est Cr Clr Drug Dosing 82.0 ml/min Est GFR ( Amer) 93.9 Est GFR (Non-Af Amer) 81.0 BUN/Creatinine Ratio 17.1 (10-20) Glucose 87 (70-99) mg/dl Calcium 7.9 L (8.5-10.1) mg/dl Total Bilirubin 0.3 (0.2-1) mg/dl AST 22 (15-37) U/L ALT 26 (12-78) U/L Alkaline Phosphatase 106 (45-117) U/L Troponin I < 0.015 (0-0.045) ng/ml Total Protein 6.7 (6.4-8.2) gm/dl Albumin 3.2 L (3.4-5.0) gm/dl Globulin 3.5 (2.5-4.0) gm/dl Albumin/Globulin Ratio 0.9 (0.9-2) Lipase 182 (73-393) U/L COVID-19 Eval Order SARS-CoV-2 (PCR) (Negative) Influenza Type A (PCR) (Neg) Influenza Type B (PCR) (Neg) RSV (RT-PCR) (Neg) 02/18/21 02/18/21 Range/Units 21:47 21:47 WBC (4.8-10.8) K/uL RBC (4.2-5.4) M/uL Hgb (12.0-16.0) g/dL Hct (37-47) % MCV (80-100) fL MCH (25-34) pg MCHC (32-36) g/dL RDW Std Deviation (36.4-46.3) fL RDW Coeff of Josue (11.5-14.5) % Plt Count (130-400) K/uL MPV (7.4-10.4) fL Immature Gran % (Auto) % Neut % (Auto) % Lymph % (Auto) % [place] % (Auto) % Eos % (Auto) % Baso % (Auto) % Neut # (Auto) (1.4-6.5) K/uL Lymph # (Auto) (1.2-3.4) K/uL [place] # (Auto) (0.11-0.59) K/uL Eos # (Auto) (0-0.5) K/uL Baso # (Auto) (0-0.2) K/uL Immature Gran # (Auto) (0.00-0.02) K/uL PT (9.0-12.0) Seconds INR (0.9-1.1) APTT (21.0-31.0) Seconds PTT Ratio D-Dimer (0-500) ug/L FEU Sodium (136-145) mmol/L Potassium (3.5-5.1) mmol/L Chloride (98-107) mmol/L Carbon Dioxide (21-32) mmol/L Anion Gap (3-11) BUN (7-18) mg/dl Creatinine (0.6-1.2) mg/dl Est Cr Clr Drug Dosing ml/min Est GFR ( Amer) Est GFR (Non-Af Amer) BUN/Creatinine Ratio (10-20) Glucose (70-99) mg/dl Calcium (8.5-10.1) mg/dl Total Bilirubin (0.2-1) mg/dl AST (15-37) U/L ALT (12-78) U/L Alkaline Phosphatase (45-117) U/L Troponin I (0-0.045) ng/ml Total Protein (6.4-8.2) gm/dl Albumin (3.4-5.0) gm/dl Globulin (2.5-4.0) gm/dl Albumin/Globulin Ratio (0.9-2) Lipase (73-393) U/L COVID-19 Eval Order CovFluRsv at [facility] SARS-CoV-2 (PCR) POSITIVE A* (Negative) Influenza Type A (PCR) Negative (Neg) Influenza Type B (PCR) Negative (Neg) RSV (RT-PCR) Negative (Neg) Diagnostic Findings R chest 1V portable HISTORY: Atypical Chest Pain COMPARISON: Chest 11/14/2018. FINDINGS: There is a hazy peripheral right upper lobe airspace opacity. No p neumothorax. No pleural effusions. The heart is top normal in size. The left lung is clear. No evidence for pulmonary edema. Old, healed left-sided rib fracture, unchanged. IMPRESSION: A new hazy right upper lobe airspace opacity consistent with a pneumonia. 1-2 month chest x-ray follow-up recommended to ensure resolution. ACT 112: Negative or not required by law. Electronically signed by: Humberto Wells M.D. 02/18/2021 9:02 PM Dictated: 02/18/212101Transcribed: 02/18/212101 ECG Additional Comments: EKG wtih NSR at 63, normal axis, XA=652, VYO=262, SUw=972, RBBB present Review of laboratory monitor shows episodes of regularly irregular pattern of narrow complex beats present in couplets, occasionally triplets, p waves present Code Status & VTE Plan VTE Prophylaxis Plan VTE Prophylaxis will be ordered: Yes PG Care Time/CCT Total # of Minutes Spent Total Time Spent with Patient: Total time spent is greater than 50% in coordination of care (as documented) at patient's floor/unit and/or counseling patient: Coding Level of Care Code 77518 Initial Inpt Care Lvl 3 Diagnoses COVID-19 U07.1 Abdominal pain R10.10 Abdominal location: upper abdomen, unspecified Arrhythmia I49.9 Arrhythmia type: unspecified cardiac arrhythmia GERD (gastroesophageal reflux disease) K21.9 Esophagitis presence: esophagitis presence not specified Vitamin D deficiency E55.9 (1) GERD (gastroesophageal reflux disease) Esophagitis presence: esophagitis presence not specified Qualified Code(s): K21.9 - Gastro-esophageal reflux disease without esophagitis (2) Abdominal pain Abdominal location: upper abdomen, unspecified Qualified Code(s): R10.10 - Upper abdominal pain, unspecified (3) Arrhythmia Arrhythmia type: unspecified cardiac arrhythmia Qualified Code(s): I49.9 - Cardiac arrhythmia, unspecified
[2021-02-19] MEDS ORDERED: oxyCODONE HCL IR 5 MG TAB (IMMEDIATE RELEASE) PO PRN (00:48)
[2021-02-19] MEDS ORDERED: ALUMINUM/MAGNESIUM SUSP 30 ML UDC PO PRN (00:48)
[2021-02-19] MEDS ORDERED: ZOLPIDEM TARTRATE 10 MG TAB PO PRN (00:48)
[2021-02-19] MEDS ORDERED: POTASSIUM CHLORIDE CRTAB 20 MEQ TABCR PO STA (00:48)
[2021-02-19] MEDS ORDERED: ALBUTEROL HFA 8 GM INHALER INH PRN (01:03)
[2021-02-19] MEDS ORDERED: REMDESIVIR 200 MG in SODIUM CHLORIDE 0.9% 210 ML IV ONE (01:30)
[2021-02-19 01:56] LABS: Creatine Kinase 32 U/L (26-192); Ferritin 276.3 ng/ml (8-388); Magnesium 2.1 mg/dl (1.8-2.4); NT Pro B Type Natriuretic Pept 94 pg/ml (0-900); Phosphorus 2.6 mg/dl (2.5-4.9)
[2021-02-19 07:41] LABS: Hematocrit (blood only) 43.8 % (37-47); Hemoglobin 14.7 g/dL (12.0-16.0); Immature Granulocytes # (auto) 0.01 K/uL (0.00-0.02); Immature Granulocytes % (auto) 0.3 %; Lymphocytes # (auto) 0.46 K/uL (1.2-3.4); Lymphocytes % (auto) 13.1 %; Mean Corpuscular Hemoglobin 29.6 pg (25-34); Mean Corpuscular Hgb Conc 33.6 g/dL (32-36); Mean Corpuscular Volume 88.1 fL (80-100); Mean Platelet Volume 10.1 fL (7.4-10.4); Monocytes # (auto) 0.14 K/uL (0.11-0.59); Neutrophils # (auto) 2.91 K/uL (1.4-6.5); Neutrophils % (auto) 82.6 %; Platelet Count 146 K/uL (130-400); RDW Coefficient of Variation 13.7 % (11.5-14.5); RDW Standard Deviation 44.2 fL (36.4-46.3); Red Blood Count 4.97 M/uL (4.2-5.4); White Blood Count 3.52 K/uL (4.8-10.8)
[2021-02-19] MEDS ORDERED: PNEUMOCOCCAL Polysaccharide Vaccine 25mcg/0.5mL vial/Syr IM ONE (08:00)
[2021-02-19 08:17] LABS: BUN Creatinine Ratio 13.6 (10-20); Calcium 8.1 mg/dl (8.5-10.1); Creatinine Clr Calc Pharmacy 75.6 ml/min; Est GFR (Non-African American) 75.1; Potassium 4.1 mmol/L (3.5-5.1)
[2021-02-19] MEDS: guaiFENesin 600 MG TABCR PO SCH ×2 (08:40→20:54)
[2021-02-19] MEDS: ENOXAPARIN INJ 40 MG/0.4 ML SYR SQ SCH ×2 (08:41→20:54)
[2021-02-19] MEDS: dexAMETHasone 6 MG in SYRINGE 0 ML IV SCH (08:41)
[2021-02-19] MEDS: BENZONATATE 100 MG CAPSULE PO PRN (08:54)
[2021-02-19] MEDS: ACETAMINOPHEN 325 MG TAB PO PRN (08:54)
--- NOTE | 2021-02-19 14:36 | Electrocardiogram Report ---
Test Reason : Blood Pressure : / mmHG Vent. Rate : 069 BPM Atrial Rate : 069 BPM P-R Int : 130 ms QRS Dur : 118 ms QT Int : 476 ms P-R-T Axes : 059 125 -40 degrees QTc Int : 510 ms Normal sinus rhythm Possible Left atrial enlargement Right bundle branch block T wave abnormality, consider inferolateral ischemia Abnormal ECG When compared with ECG of 14-NOV-2018 19:07, ST now depressed in Inferior leads T wave inversion more evident in Inferior leads T wave inversion now evident in Lateral leads Confirmed by Ok Butt ([id number]) on 02/19/2021 2:36:19 PM Referred By: REFERRED SELF Confirmed By:Ok Butt
--- NOTE | 2021-02-19 14:36 | Electrocardiogram Report ---
Test Reason : Blood Pressure : / mmHG Vent. Rate : 063 BPM Atrial Rate : 063 BPM P-R Int : 134 ms QRS Dur : 118 ms QT Int : 464 ms P-R-T Axes : 056 113 077 degrees QTc Int : 474 ms Normal sinus rhythm Possible Left atrial enlargement Right bundle branch block Abnormal ECG When compared with ECG of 18-FEB-2021 20:30, (unconfirmed) T wave inversion no longer evident in Inferior leads Confirmed by Ok Butt ([id number]) on 02/19/2021 2:36:46 PM Referred By: REFERRED SELF Confirmed By:Ok Butt
[2021-02-19] MEDS ORDERED: KETOROLAC TROMETHAMINE 15 MG/ML VIAL IV ONE (15:38)
--- NOTE | 2021-02-19 15:40 | Hospitalist Progress Note ---
Date of Service February 19, 2021 Assessment & Plan (1) COVID-19: 65yo C female presenting with Covid-19 pneumonia. Patient was initially febrile, acute hypoxic respiratory failure with SpO2 of 87% on room air. CXR with RUL airspace density concerning for PNA. continue dexamethasone and Remdesivir today labs stable, vitals stable, breathing well on room air, saturations > 94% severe headache, resolved with Toradol 15mg IV continue IV fluids as PO intake is very poor check labs in the morning Lovenox 40mg BID for DVT ppx anticipate her going home tomorrow as long as she is doing well on room air (2) Abdominal pain: Patient with history of abdominal pain. LFTs and Lipase WNL. Suspect GERD contributing. Abdomen is soft, tender but non-acute. -Maalox PRN pain better today, no complaints (3) Arrhythmia: Patient with episodes of regularly irregular grouped beating occurring in couplets and occasionally triplets. Patient states she was first told that she had a "funny rhythm" 20 years ago. She has never seen a firer kiln before. -Telemetry monitoring: no issues electrolytes stable no need for cardiology consult at this time (4) GERD (gastroesophageal reflux disease): Chronic. Suspect GERD is somewhat contributing to patients upper abdominal pain -Maalox PRN (5) Vitamin D deficiency: Chronic -Continue weekly supplementation F/E/N - resume IV fluids today as PO intake is poor Ppx - Lovenox 40 BID Code - Full per discussion with patient DIspo - plan for d/c tomorrow Admission and Anticipated Discharge Date Admission Date: February 18, 2021 Subjective patient c/o headache, severe pain behind her eyes, gave her a dose of Toradol 15mg IV, pain went down to a 2 out of 10 she is not eating or drinking well, will give IV fluids and reassess tomorrow remains stable on room air, continue on Remdesivir and dexamethasone for today no fever, no chills, no cough, no dyspnea, no chest pain, no GI symptoms reviewed chart including chest x-ray reviewed lab work, WBC normal, Cr 0.8, electrolytes stable Review of Systems Review of Systems: All systems reviewed & are unremarkable except as noted in Subjective Constitutional: + fatigue; no fever, no chills, no sweats and no weakness Respiratory: no cough and no dyspnea Cardiovascular: no chest pain, no palpitations, no syncope and no edema Gastrointestinal: no abdominal pain, no nausea, no vomiting, no constipation and no diarrhea/loose stools Neurologic: + headache(s) Physical Exam Constitutional: WD/WN, vitals as above Neck: trachea midline, no thyromegaly Respiratory: normal respiratory effort, lungs clear to auscultation Cardiovascular: RRR, no murmur, no edema Gastrointestinal (Abdomen): normal bowel sounds, soft, nontender, no hepatosplenomegaly Musculoskeletal: no cyanosis or clubbing, extremities motor strength 5/5 Skin: no rashes, warm and dry Neurologic: patellar DTR's 2+ bilat, sensation intact and PERRL, EOMI, accommodation nl, no face palsy, no dysarthria Psychiatric: A+Ox3, euthymic affect Lymphatic: no cervical or axillary lymphadenopathy Results & Data Results & Data ([facility]) Vital Signs (Past 12 Hours) Vital Signs Temp Pulse Pulse Resp BP Pulse Ox 02/19/21 15:33 36.8 C 58 L 17 115/60 96 02/19/21 11:21 36.8 C 57 L 17 134/74 93 02/19/21 07:46 36.8 C 52 L 18 133/79 97 02/19/21 07:00 49 L Laboratory Results Laboratory Results - last 24 hr 02/18/21 02/18/21 02/18/21 20:48 20:48 20:48 WBC 4.93 RBC 4.72 Hgb 14.2 Hct 40.8 MCV 86.4 MCH 30.1 MCHC 34.8 RDW Std Deviation 42.9 RDW Coeff of Josue 13.4 Plt Count 150 MPV 9.7 Immature Gran % (Auto) 0.4 Neut % (Auto) 78.3 Lymph % (Auto) 13.6 [place] % (Auto) 7.5 Eos % (Auto) 0.0 Baso % (Auto) 0.2 Neut # (Auto) 3.86 Lymph # (Auto) 0.67 L [place] # (Auto) 0.37 Eos # (Auto) 0.00 Baso # (Auto) 0.01 Immature Gran # (Auto) 0.02 PT 9.6 INR 0.9 APTT 28.8 PTT Ratio 1.1 D-Dimer 570 H* Sodium 137 Potassium 3.3 L Chloride 105 Carbon Dioxide 26 Anion Gap 6.0 BUN 13 Creatinine 0.77 Est Cr Clr Drug Dosing 82.0 Est GFR ( Amer) 93.9 Est GFR (Non-Af Amer) 81.0 BUN/Creatinine Ratio 17.1 Glucose 87 Calcium 7.9 L Phosphorus 2.6 Magnesium 2.1 Ferritin 276.3 Total Bilirubin 0.3 AST 22 ALT 26 Alkaline Phosphatase 106 Lactate Dehydrogenase Total Creatine Kinase 32 Troponin I < 0.015 C-Reactive Protein 3.20 H NT-Pro-B Natriuret Pep 94 Total Protein 6.7 Albumin 3.2 L Globulin 3.5 Albumin/Globulin Ratio 0.9 Lipase 182 Procalcitonin COVID-19 Eval Order SARS-CoV-2 (PCR) Influenza Type A (PCR) Influenza Type B (PCR) RSV (RT-PCR) 02/18/21 02/18/21 02/18/21 20:48 20:48 21:47 WBC RBC Hgb Hct MCV MCH MCHC RDW Std Deviation RDW Coeff of Josue Plt Count MPV Immature Gran % (Auto) Neut % (Auto) Lymph % (Auto) [place] % (Auto) Eos % (Auto) Baso % (Auto) Neut # (Auto) Lymph # (Auto) [place] # (Auto) Eos # (Auto) Baso # (Auto) Immature Gran # (Auto) PT INR APTT PTT Ratio D-Dimer Sodium Potassium Chloride Carbon Dioxide Anion Gap BUN Creatinine Est Cr Clr Drug Dosing Est GFR ( Amer) Est GFR (Non-Af Amer) BUN/Creatinine Ratio Glucose Calcium Phosphorus Magnesium Ferritin Total Bilirubin AST ALT Alkaline Phosphatase Lactate Dehydrogenase 168 Total Creatine Kinase Troponin I C-Reactive Protein NT-Pro-B Natriuret Pep Total Protein Albumin Globulin Albumin/Globulin Ratio Lipase Procalcitonin < 0.05 COVID-19 Eval Order CovFluRsv at [facility] SARS-CoV-2 (PCR) Influenza Type A (PCR) Influenza Type B (PCR) RSV (RT-PCR) 02/18/21 02/19/21 02/19/21 21:47 07:11 07:11 WBC 3.52 L RBC 4.97 Hgb 14.7 Hct 43.8 MCV 88.1 MCH 29.6 MCHC 33.6 RDW Std Deviation 44.2 RDW Coeff of Josue 13.7 Plt Count 146 MPV 10.1 Immature Gran % (Auto) 0.3 Neut % (Auto) 82.6 Lymph % (Auto) 13.1 [place] % (Auto) 4.0 Eos % (Auto) 0.0 Baso % (Auto) 0.0 Neut # (Auto) 2.91 Lymph # (Auto) 0.46 L [place] # (Auto) 0.14 Eos # (Auto) 0.00 Baso # (Auto) 0.00 Immature Gran # (Auto) 0.01 PT INR APTT PTT Ratio D-Dimer Sodium 138 Potassium 4.1 D Chloride 107 Carbon Dioxide 27 Anion Gap 4.0 BUN 11 Creatinine 0.82 Est Cr Clr Drug Dosing 75.6 Est GFR ( Amer) 87.0 Est GFR (Non-Af Amer) 75.1 BUN/Creatinine Ratio 13.6 Glucose 126 H Calcium 8.1 L Phosphorus Magnesium Ferritin Total Bilirubin AST ALT Alkaline Phosphatase Lactate Dehydrogenase Total Creatine Kinase Troponin I C-Reactive Protein NT-Pro-B Natriuret Pep Total Protein Albumin Globulin Albumin/Globulin Ratio Lipase Procalcitonin COVID-19 Eval Order SARS-CoV-2 (PCR) POSITIVE A* Influenza Type A (PCR) Negative Influenza Type B (PCR) Negative RSV (RT-PCR) Negative Medications Administered Current Inpatient Medications Acetaminophen (Acetaminophen 325 Mg Tab) 650 mg PO Q4H PRN PRN Reason: FEVER/PAIN Stop: 03/21/21 00:47 Last Admin: 02/19/21 08:54 Dose: 650 mg Documented by: Al Hydrox/Mg Hydrox/Simethicone (Aluminum/Magnesium Susp 30 Ml Udc) 15 ml PO Q6H PRN PRN Reason: Heartburn Stop: 03/21/21 00:47 Albuterol (Albuterol Hfa 8 Gm Inhaler) 2 puffs INH QID PRN PRN Reason: shortness of breath Stop: 03/21/21 01:02 Benzonatate (Benzonatate 100 Mg Capsule) 100 mg PO TID PRN PRN Reason: Cough Stop: 03/21/21 00:47 Last Admin: 02/19/21 08:54 Dose: 100 mg Documented by: Docusate Sodium (Docusate Sodium 100 Mg Cap) 300 mg PO DAILY PRN PRN Reason: constipation Stop: 03/21/21 00:47 Enoxaparin Sodium (Enoxaparin Inj 40 Mg/0.4 Ml Syr) 40 mg SQ Q12H AV Stop: 03/21/21 08:59 Last Admin: 02/19/21 08:41 Dose: 40 mg Documented by: Ergocalciferol (Ergocalciferol 50,000 Units 1250 Mcg Cap) 50,000 units PO Sa@0900 AV Stop: 03/24/21 08:59 Guaifenesin (Guaifenesin 600 Mg Tabcr) 600 mg PO Q12 AV Stop: 03/21/21 08:59 Last Admin: 02/19/21 08:40 Dose: 600 mg Documented by: Dexamethasone 6 mg/ Syringe 1.5 mls @ 1 mls/min IV Q24H AV Stop: 03/21/21 08:59 Last Admin: 02/19/21 08:41 Dose: 1 mls/min Documented by: Remdesivir 100 mg/ Sodium (Chloride) 250 mls @ 250 mls/hr IV Q24H [facility]; Protocol Stop: 02/22/21 20:59 Dextrose/Sodium Chloride (D5w And 1/2nss) 1,000 mls @ 80 mls/hr IV .[id number] [facility] Stop: 03/21/21 15:44 Ketorolac Tromethamine (Ketorolac Tromethamine 15 Mg/Ml Vial) 15 mg IV NOW ONE Stop: 02/19/21 15:39 Oxycodone HCl (Oxycodone Hcl Ir 5 Mg Tab (Immediate Release)) 5 mg PO Q4H PRN PRN Reason: Pain Stop: 03/05/21 00:47 Sodium Chloride (Sodium Chloride 0.9% 10ml Flush) 30 ml IV Q24H [facility] Stop: 02/22/21 20:01 Zolpidem Tartrate (Zolpidem Tartrate 10 Mg Tab) 10 mg PO HS PRN PRN Reason: Insomnia Stop: 03/21/21 00:47 PG Care Time/CCT Total # of Minutes Spent Total Time Spent with Patient: Total time spent is greater than 50% in coordination of care (as documented) at patient's floor/unit and/or counseling patient: Coding Level of Care Code 64299 Subseq Hosp Care Lvl 2 Diagnoses COVID-19 U07.1 Abdominal pain R10.10 Abdominal location: upper abdomen, unspecified Arrhythmia I49.9 Arrhythmia type: unspecified cardiac arrhythmia GERD (gastroesophageal reflux disease) K21.9 Esophagitis presence: esophagitis presence not specified Vitamin D deficiency E55.9 (1) Arrhythmia Arrhythmia type: unspecified cardiac arrhythmia Qualified Code(s): I49.9 - Cardiac arrhythmia, unspecified (2) GERD (gastroesophageal reflux disease) Esophagitis presence: esophagitis presence not specified Qualified Code(s): K21.9 - Gastro-esophageal reflux disease without esophagitis (3) Abdominal pain Abdominal location: upper abdomen, unspecified Qualified Code(s): R10.10 - Upper abdominal pain, unspecified
[2021-02-19] MEDS: D5W AND 1/2NSS 1,000 ML IV SCH (16:15)
[2021-02-19] MEDS: REMDESIVIR 100 MG in SODIUM CHLORIDE 0.9% 230 ML IV SCH (20:47)
[2021-02-19] MEDS: DOCUSATE SODIUM 100 MG CAP PO PRN (20:54)
[2021-02-19] MEDS: SODIUM CHLORIDE 0.9% 10ML FLUSH IV SCH (20:56)
[2021-02-20] MEDS: ACETAMINOPHEN 325 MG TAB PO PRN (06:05)
[2021-02-20] MEDS: BENZONATATE 100 MG CAPSULE PO PRN ×2 (06:06→12:55)
[2021-02-20] MEDS: D5W AND 1/2NSS 1,000 ML IV SCH (06:08)
[2021-02-20 06:09] LABS: Hematocrit (blood only) 39.9 % (37-47); Hemoglobin 13.7 g/dL (12.0-16.0); Mean Corpuscular Hemoglobin 29.7 pg (25-34); Mean Corpuscular Hgb Conc 34.3 g/dL (32-36); Mean Corpuscular Volume 86.4 fL (80-100); Mean Platelet Volume 10.2 fL (7.4-10.4); Platelet Count 158 K/uL (130-400); RDW Coefficient of Variation 13.8 % (11.5-14.5); Red Blood Count 4.62 M/uL (4.2-5.4); White Blood Count 5.03 K/uL (4.8-10.8)
[2021-02-20 06:44] LABS: BUN Creatinine Ratio 23.4 (10-20); Creatinine Clr Calc Pharmacy 72.2 ml/min; Est GFR (African American) 82.2; Est GFR (Non-African American) 70.9
[2021-02-20] MEDS: ENOXAPARIN INJ 40 MG/0.4 ML SYR SQ SCH ×2 (08:12→20:33)
[2021-02-20] MEDS: guaiFENesin 600 MG TABCR PO SCH ×2 (08:12→20:28)
[2021-02-20] MEDS: dexAMETHasone 6 MG in SYRINGE 0 ML IV SCH (08:12)
[2021-02-20] MEDS ORDERED: KETOROLAC TROMETHAMINE 15 MG/ML VIAL IV ONE (09:56)
[2021-02-20] MEDS ORDERED: SUMAtriptan succinate 6 MG/0.5 ML VIAL SQ STA (11:47)
[2021-02-20] MEDS: REMDESIVIR 100 MG in SODIUM CHLORIDE 0.9% 230 ML IV SCH (20:23)
[2021-02-20] MEDS: SODIUM CHLORIDE 0.9% 10ML FLUSH IV SCH (20:24)
[2021-02-20] MEDS: DOCUSATE SODIUM 100 MG CAP PO PRN (20:27)
--- NOTE | 2021-02-20 21:38 | Hospitalist Progress Note ---
Date of Service February 20, 2021 Assessment & Plan (1) COVID-19: 65yo C female presenting with Covid-19 pneumonia. Patient was initially febrile, acute hypoxic respiratory failure with SpO2 of 87% on room air. CXR with RUL airspace density concerning for PNA. continue dexamethasone for now, stop Remdesivir with bump in AST and ALT, no role for this now that she is not hypoxic labs stable, vitals stable, breathing well on room air, saturations > 94% severe headache, resolved with Toradol 15mg IV and Imitrex, might be a migraine stop IV fluids today Lovenox 40mg BID for DVT ppx anticipate her going home tomorrow morning (2) Abdominal pain: Patient with history of abdominal pain. LFTs and Lipase WNL. Suspect GERD contributing. Abdomen is soft, tender but non-acute. -Maalox PRN pain better today, no complaints (3) Arrhythmia: Patient with episodes of regularly irregular grouped beating occurring in couplets and occasionally triplets. Patient states she was first told that she had a "funny rhythm" 20 years ago. 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 -Telemetry monitoring: no issues electrolytes stable no need for cardiology consult at this time (4) GERD (gastroesophageal reflux disease): Chronic. Suspect GERD is somewhat contributing to patients upper abdominal pain -Maalox PRN (5) Vitamin D deficiency: Chronic -Continue weekly supplementation F/E/N - resume IV fluids today as PO intake is poor Ppx - Lovenox 40 BID Code - Full per discussion with patient DIspo - plan for d/c tomorrow Admission and Anticipated Discharge Date Admission Date: February 18, 2021 Subjective patient c/o worse headache than yesterday, feeling nauseated, weak no fever, no dyspnea, no hypoxia, no chest pain, no cough vitals stable, 97% room air, gave her Toradol and then Imitrex for headache, gained a lot of relief discussed that she can go home in the morning, she agrees she is eating and drinking a lot better today reviewed labs, mild elevation in AST/ALT, CBC is normal, Cr stable Review of Systems Review of Systems: All systems reviewed & are unremarkable except as noted in Subjective Constitutional: + fatigue and + weakness; no fever, no chills and no sweats Respiratory: no cough and no dyspnea Cardiovascular: no chest pain, no palpitations and no edema Gastrointestinal: no abdominal pain, no nausea, no vomiting, no constipation and no diarrhea/loose stools Neurologic: + headache(s) Physical Exam Constitutional: WD/WN, vitals as above Neck: trachea midline, no thyromegaly Respiratory: normal respiratory effort, lungs clear to auscultation Cardiovascular: RRR, no murmur, no edema Gastrointestinal (Abdomen): normal bowel sounds, soft, nontender, no hepatosplenomegaly Musculoskeletal: no cyanosis or clubbing, extremities motor strength 5/5 Skin: no rashes, warm and dry Neurologic: patellar DTR's 2+ bilat, sensation intact and PERRL, EOMI, accommodation nl, no face palsy, no dysarthria Psychiatric: A+Ox3, euthymic affect Lymphatic: no cervical or axillary lymphadenopathy Results & Data Results & Data ([facility]) Vital Signs (Past 12 Hours) Vital Signs Temp Pulse Pulse Resp BP Pulse Ox 02/20/21 19:00 36.7 C 46 L 20 151/81 H 97 02/20/21 16:00 49 L 02/20/21 15:45 36.7 C 54 L 20 143/81 H 95 02/20/21 11:41 37.2 C 64 18 158/76 H 96 Laboratory Results Laboratory Results - last 24 hr 02/20/21 02/20/21 05:43 05:43 WBC 5.03 RBC 4.62 Hgb 13.7 Hct 39.9 MCV 86.4 MCH 29.7 MCHC 34.3 RDW Std Deviation 44.0 RDW Coeff of Josue 13.8 Plt Count 158 MPV 10.2 Sodium 141 Potassium 4.0 Chloride 109 H Carbon Dioxide 30 Anion Gap 2.0 L BUN 20 H D Creatinine 0.86 Est Cr Clr Drug Dosing 72.2 Est GFR ( Amer) 82.2 Est GFR (Non-Af Amer) 70.9 BUN/Creatinine Ratio 23.4 H Glucose 103 H Calcium 8.0 L AST 89 H ALT 145 H Medications Administered Current Inpatient Medications Acetaminophen (Acetaminophen 325 Mg Tab) 650 mg PO Q4H PRN PRN Reason: FEVER/PAIN Stop: 03/21/21 00:47 Last Admin: 02/20/21 06:05 Dose: 650 mg Documented by: Al Hydrox/Mg Hydrox/Simethicone (Aluminum/Magnesium Susp 30 Ml Udc) 15 ml PO Q6H PRN PRN Reason: Heartburn Stop: 03/21/21 00:47 Albuterol (Albuterol Hfa 8 Gm Inhaler) 2 puffs INH QID PRN PRN Reason: shortness of breath Stop: 03/21/21 01:02 Benzonatate (Benzonatate 100 Mg Capsule) 100 mg PO TID PRN PRN Reason: Cough Stop: 03/21/21 00:47 Last Admin: 02/20/21 12:55 Dose: 100 mg Documented by: Docusate Sodium (Docusate Sodium 100 Mg Cap) 300 mg PO DAILY PRN PRN Reason: constipation Stop: 03/21/21 00:47 Last Admin: 02/20/21 20:27 Dose: 300 mg Documented by: Enoxaparin Sodium (Enoxaparin Inj 40 Mg/0.4 Ml Syr) 40 mg SQ Q12H AV Stop: 03/21/21 08:59 Last Admin: 02/20/21 20:33 Dose: 40 mg Documented by: Ergocalciferol (Ergocalciferol 50,000 Units 1250 Mcg Cap) 50,000 units PO Sa@0900 AV Stop: 03/24/21 08:59 Guaifenesin (Guaifenesin 600 Mg Tabcr) 600 mg PO Q12 AV Stop: 03/21/21 08:59 Last Admin: 02/20/21 20:28 Dose: 600 mg Documented by: Dexamethasone 6 mg/ Syringe 1.5 mls @ 1 mls/min IV Q24H AV Stop: 03/21/21 08:59 Last Admin: 02/20/21 08:12 Dose: 1 mls/min Documented by: Remdesivir 100 mg/ Sodium (Chloride) 250 mls @ 250 mls/hr IV Q24H AV; Protocol Stop: 02/22/21 20:59 Last Admin: 02/20/21 20:23 Dose: 250 mls/hr Documented by: Oxycodone HCl (Oxycodone Hcl Ir 5 Mg Tab (Immediate Release)) 5 mg PO Q4H PRN PRN Reason: Pain Stop: 03/05/21 00:47 Sodium Chloride (Sodium Chloride 0.9% 10ml Flush) 30 ml IV Q24H AV Stop: 02/22/21 20:01 Last Admin: 02/20/21 20:24 Dose: 30 ml Documented by: Zolpidem Tartrate (Zolpidem Tartrate 10 Mg Tab) 10 mg PO HS PRN PRN Reason: Insomnia Stop: 03/21/21 00:47 PG Care Time/CCT Total # of Minutes Spent Total Time Spent with Patient: Total time spent is greater than 50% in coordination of care (as documented) at patient's floor/unit and/or counseling patient: Coding Level of Care Code 85305 Subseq Hosp Care Lvl 2 Diagnoses COVID-19 U07.1 Abdominal pain R10.10 Abdominal location: upper abdomen, unspecified Arrhythmia I49.9 Arrhythmia type: unspecified cardiac arrhythmia GERD (gastroesophageal reflux disease) K21.9 Esophagitis presence: esophagitis presence not specified Vitamin D deficiency E55.9 (1) Abdominal pain Abdominal location: upper abdomen, unspecified Qualified Code(s): R10.10 - Upper abdominal pain, unspecified (2) Arrhythmia Arrhythmia type: unspecified cardiac arrhythmia Qualified Code(s): I49.9 - Cardiac arrhythmia, unspecified (3) GERD (gastroesophageal reflux disease) Esophagitis presence: esophagitis presence not specified Qualified Code(s): K21.9 - Gastro-esophageal reflux disease without esophagitis
[2021-02-21 07:18] LABS: Creatinine Clr Calc Pharmacy 71.3 ml/min; Est GFR (Non-African American) 69.9
[2021-02-21] MEDS: dexAMETHasone 6 MG in SYRINGE 0 ML IV SCH (07:56)
[2021-02-21] MEDS: ENOXAPARIN INJ 40 MG/0.4 ML SYR SQ SCH (07:57)
[2021-02-21] MEDS: guaiFENesin 600 MG TABCR PO SCH (07:57)
--- NOTE | 2021-02-21 09:01 | Discharge Summary ---
Date of Service February 21, 2021 Admission HPI Per Admitting Provider Courtney Torre is a 65yo female presenting with diffuse body aches, cough, SOB. Patient began developing symptoms appx 3 days ago - body aches, headache, chest pain, cough productive for yellow sputum and abdominal pain. She had some vomiting as well. Symptoms persisted. She was tested for Covid-19 today at [facility] and found to be positive. She was sent to [facility] because her blood pressure was reportedly elevated. Patient's main complaint at this time is upper abdominal pain and muscle pain diffusely. Patient febrile in the ER at 38. She is bradycardic, BP stable. RR of 19 saturating 87% on room air ER Course: Dexamethasone, Morphine, Zofran, Zosyn Principal Diagnosis COVID 19 pneumonia, migraine headache Discharge Exam Constitutional WD/WN, vitals as above Neck trachea midline, no thyromegaly Respiratory normal respiratory effort, lungs clear to auscultation Cardiovascular RRR, no murmur, no edema Gastrointestinal (Abdomen) normal bowel sounds, soft, nontender, no hepatosplenomegaly Musculoskeletal no cyanosis or clubbing, extremities motor strength 5/5 Skin no rashes, warm and dry Neurologic patellar DTR's 2+ bilat, sensation intact and PERRL, EOMI, accommodation nl, no face palsy, no dysarthria Psychiatric A+Ox3, euthymic affect Lymphatic no cervical or axillary lymphadenopathy Discharge Data Allergies Allergy/AdvReac Type Severity Reaction Status Date / Time No Known Allergies Allergy NONE Verified 02/18/21 21:08 Consultations 02/18/21 22:21 ED Decision to Admit Stat Hospital Course (1) COVID-19: 65yo C female presenting with Covid-19 pneumonia. Patient was initially febrile, acute hypoxic respiratory failure with SpO2 of 87% on room air. CXR with RUL airspace density concerning for PNA. treated with dexamethasone, stopped Remdesivir after three days due to bump in AST and ALT, no role for this now that she is not hypoxic labs stable, vitals stable, breathing well on room air, saturations > 94% send home on dexamethasone 6mg PO daily for a few more days severe headache, resolved with Toradol 15mg IV and Imitrex, might be a migraine stop IV fluids today discharge to home (2) Abdominal pain: Patient with history of abdominal pain. LFTs and Lipase WNL. Suspect GERD contributing. Abdomen is soft, tender but non-acute. -Maalox PRN pain better for three days, no complaints, eating well (3) Arrhythmia: Patient with episodes of regularly irregular grouped beating occurring in couplets and occasionally triplets. Patient states she was first told that she had a "funny rhythm" 20 years ago. 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 -Telemetry monitoring: no issues electrolytes stable no need for cardiology consult at this time (4) GERD (gastroesophageal reflux disease): Chronic. Suspect GERD is somewhat contributing to patients upper abdominal pain -Maalox PRN (5) Vitamin D deficiency: Chronic -Continue weekly supplementation F/E/N - resume IV fluids today as PO intake is poor Ppx - Lovenox 40 BID Code - Full per discussion with patient DIspo - plan for d/c tomorrow (6) Headache: severe at times, most pressing complaint was 10/10 several times, felt behind her eyes, throbbing, closing eyes and dark makes her better relieved with Toradol and then gave Imitrex no history of Migraine headaches but described as one will give her some Imitrex on discharge to use PRN can take Ibuprofen, Tylenol PRN as first line Total Time Total Time Spent Total Time Spent (In Minutes): 33 minutes Total Time Includes: Examination of the Patient, Discharge Planning and Medication Reconciliation Discharge Plan Discharge Items Patient Disposition: Home - Self-Care Reason For Visit: COVID + PNA Discharge Diagnosis: COVID 19 pneumonia Migraine headache Condition on Discharge: Good Goals: stay well rested, well hydrated, get rest Activity: Resume your previous activity Non-emergency contact: Primary Care Provider Call non-emergency contact if: you have any medication questions and your symptoms worsen Follow-up/Referrals: Km Canas III, MD [Primary Care Provider] - 02/25/21 2:00 pm (THIS VISIT WITH A PHONE CALL. THE OFFICE WILL CALL AT APPT TIME) Diet: Regular Addtl Attending Provider Instructions: Medications: - DEXAMETHASONE: 6mg daily for 3 more days COVID 19 pneumonia, brief episode of hypoxia, migraine headache responding well to treatment can go home on 3 more days of dexamethasone get plenty of rest, stay well hydrated and well nourished stay in isolation for 5 more days, but after that you are safe to leave your home with a mask on for headache, take Ibuprofen or Naproxen as prescribed (be sure to take with food), can take Tylenol 650mg every 6 hours Pending Studies at Discharge: No Stand-Alone Forms: [facility], Smoking Cessation Medications and DC Order Prescriptions: New dexamethasone 4 mg tablet 6 mg PO DAILY 3 Days Qty: 5 RF: 0 sumatriptan succinate [Imitrex] 25 mg tablet See Rx Instructions .ROUTE .COMPLEX Qty: 14 RF: 0 Continued zolpidem 10 mg tablet 10 mg PO HS PRN (Reason: Insomnia) Qty: 30 RF: 5 albuterol sulfate [ProAir HFA] 90 mcg/actuation HFA aerosol inhaler 2 puffs INH QID PRN (Reason: shortness of breath) Qty: 8.5 RF: 2 ibuprofen 400 mg Tablet 400 mg PO BID PRN (Reason: Pain) RF: 0 docusate sodium 100 mg Capsule 300 mg PO DAILY RF: 0 acetaminophen [Tylenol] 325 mg Tablet 650 mg PO DIRECTED PRN (Reason: FEVER/PAIN) RF: 0 naproxen sodium [Aleve] 220 mg Tablet 220 - 440 mg PO DIRECTED PRN (Reason: Pain) RF: 0 Claritin-D 12 Hour 5-120 mg tablet extended release 12 hr 1 tab PO Q12H PRN (Reason: Congestion) RF: 0 ergocalciferol (vitamin D2) 1,250 mcg (50,000 unit) capsule 50,000 unit PO WK RF: 0 Discharge Orders: Discharge Order (Routine); Ordered 02/21/21 Ordered By: Abelardo Jasmine Admission Data Admit Date/Time: 02/18/21 23:00 Attending Provider: Abelardo Jasmine Admit Provider: Shantel Waldron Primary Care Provider: Km Canas III Other Providers: Shantel Waldron Other Interventions: Discharge Summary Assessment (RN) Last Done: 02/21/21 09:59 Coding Level of Care Code D/C Day Management >30 mins Diagnoses COVID-19 U07.1 Abdominal pain R10.10 Abdominal location: upper abdomen, unspecified Arrhythmia I49.9 Arrhythmia type: unspecified cardiac arrhythmia GERD (gastroesophageal reflux disease) K21.9 Esophagitis presence: esophagitis presence not specified Vitamin D deficiency E55.9 Headache R51.9
[2021-02-22] MEDS ORDERED: ERGOCALCIFEROL 50,000 UNITS 1250 MCG CAP PO SCH (09:00)
== END 2021-02-21 11:40 | disposition home or self-care (01) | DRG 177 ==
LOC: ED 20:10 → SUATTDRO 23:00 → 2S 23:00

== ENCOUNTER 2022-07-22 15:29 | Observation (INO) ==
[2022-07-22 16:45] LABS: Albumin Globulin Ratio 1.4 (0.9-2); Albumin Level 4.5 gm/dl (3.4-5.0); BUN Creatinine Ratio 14.1 (10-20); Bilirubin,Total 0.7 mg/dl (0.2-1.0); Calcium 9.7 mg/dl (8.5-10.1); Est GFR (African American) 82.2 ml/min; Est GFR (Non-African American) 70.9 ml/min; Globulin 3.3 gm/dl (2.5-4.0); Potassium 3.9 mmol/L (3.5-5.1); Total Protein 7.8 gm/dl (6.0-8.3)
[2022-07-22 16:47] LABS: Troponin I High Sensitivity 4.9 pg/ml (0-14)
--- NOTE | 2022-07-22 17:08 | XRay Report ---
SINGLE VIEW CHEST CLINICAL HISTORY: Atypical chest pain FINDINGS: An AP, portable, upright chest radiograph is compared to study dated 03/27/2021 and correlate d with chest CT dated 03/01/2021. The cardiomediastinal silhouette is unremarkable noting atherosclero tic calcification of the thoracic aorta. Emphysema and chronic interstitial thickening is similar to previous. The lungs and pleural spaces are clear. No pneumothorax is seen. The skeletal structures ar e osteopenic. There are healed left-sided rib fracture. IMPRESSION: Emphysematous change with no active disease in the chest. ACT 112: Negative or not required by law. Electronically signed by: Reji Sorenson M.D. 07/22/2022 5:06 PM
--- NOTE | 2022-07-22 18:25 | Emergency Department Note ---
History of Present Illness General Chief complaint: Chest Pain Stated complaint: CHEST PAIN, JAW PAIN Time Seen by Provider: 07/22/22 18:15 Source: patient Mode of arrival: ambulatory Limitations: no limitations History of Present Illness Provider complaint: chest pain Onset (ago): hour(s) Maximum Pain Intensity: 4 Associated symptoms: + chest pain and + shortness of breath This is a 67-year-old female who presents emergency department due to concern for chest pain. She states chest pain began while she was walking her dog. She states it was sharp and central in nature. She states pain began to radiate up into her jaw, left back and left upper extremity. She states because she does have a history of heartburn she did try Tums. She states this only mildly lessened her pain but did not relieve it. She states since the pain started it has been constant. No prior similar episodes. Patient states she did not have anything to eat or drink today prior to this starting however after chest pain started she has began drinking water she felt slightly lightheaded. Patient also notes approximately a week ago she had an abrupt episode of shortness of breath. She states she was resting at this time. No prior similar events and her symptoms did not recur. She denies any coming shortness of breath today. Patient denies any history of heart problems. No recent medication changes. No significant family history of heart problems. Patient initially seen out in triage as she presented on day of high volume and acuity. Labs have been drawn and sent by nursing staff per their protocols. Pt seen during a time of high acuity and national emergency pandemic while wearing PPE. Home Medications Medication Instructions Recorded Confirmed Type docusate sodium 100 mg capsule 100 mg PO BID 11/14/18 07/23/22 History albuterol sulfate 90 mcg/actuation 2 puff inhalation UD PRN shortness 02/11/22 07/23/22 Rx aerosol inhaler (ProAir HFA) of breath #8.5 grams Unknown Sleep Aid 1 tab PO HS PRN Sleep 07/23/22 07/23/22 History cholecalciferol (vitamin D3) 25 0 mcg PO DAILY 07/23/22 07/23/22 History mcg (1,000 unit) tablet (Vitamin D3) famotidine 20 mg tablet 20 mg PO BID #30 tabs 07/23/22 Rx multivitamin 2 tab PO DAILY 07/23/22 07/23/22 History Allergies Allergy/AdvReac Type Severity Reaction Status Date / Time No Known Allergies Allergy NONE Verified 07/23/22 12:53 Past Med/Surg History Medical History Anxiety history of chest pain with anxiety Cardiac murmur pcp monitors History of COVID-19 01/2021, hospitalized, pneumonia, shortness of breath, loss of taste/smell, light sensitivity, fatigue, weak-symptoms improved, but still having s hortness of breath/difficulty breathing DENIES CURRENT SYMPTOMS, PT REPORTS ALL RESOLVED Hyperlipidemia DENIES Surgical History History of cholecystectomy (~06/20/15) History of colonoscopy with polypectomy History of left cataract surgery Hx of colonoscopy (04/2008) Hx of LASIK Hx of tubal ligation Family History Sister Ovarian cancer Breast cancer Colorectal cancer Cancer Hypertension Diabetes Brother Colorectal cancer Cancer Father Diabetes Cancer Son Colorectal cancer Mother Dementia Hypertension Denies family history of Prostate cancer Myocardial infarction Social History Smoking Status: Current every day smoker Tobacco Type: E-cigarettes / Vaping Age Started Using Tobacco: 13; Age Quit Using Tobacco: 58; packs per day: 0.5; Years Smoked: 45; Cigarettes Per Day: HX CIGARETTES, DAILY USE VAPE - ADVISED NPO; Number of Years Since Quit: 6; Second Hand Exposure: No; Hx Alcohol Use: No Hx Substance Use: No Preferred Language: Argentine Communication Ability: Effective Visual Impairment: No Limitations Hearing Ability: Normal Mirror Maker Required: No Beliefs That Will Affect Care: None marital status: Current Living Situation: Spouse and Family current occupational status: unemployed Feels Safe at Home: No Is there a partner from a previous relationship who is making you feel unsafe now?: No Dental Care, Regularly: No Physical Activity Frequency: Does not Exercise Seatbelt Use: always Assistive Devices: None Review of Systems A total of 10 systems reviewed and were otherwise negative All systems reviewed & are unremarkable except as noted in HPI & below Physical Exam Vital Signs Vital Signs - 24 hr 07/22/22 15:33 07/22/22 21:11 Temperature 36.4 C L Temperature Source Temporal Artery Scan Pulse Rate 75 Respiratory Rate 18 Blood Pressure 179/97 H Blood Pressure Mean 124 Pulse Oximetry 96 98 Oxygen Delivery Method Room Air Room Air Sepsis Recent Fever Within 48 Hours No Sepsis New/Unexplained Change in Mental Status No Sepsis Action Taken by Nursing No Action Required GENERAL: alert, unwell appearing, well nourished, no distress, non-toxic EYE EXAM: normal conjunctiva, PERRL and EOM's grossly intact OROPHARYNX: no exudate, no erythema, lips, buccal mucosa, and tongue normal and mucous membranes are moist NECK: supple, no nuchal rigidity, no adenopathy, non-tender LUNGS: Clear to auscultation. Normal chest wall mechanics, no w/r/r HEART: no murmurs, S1 normal and S2 normal ABDOMEN: abdomen soft, non-tender, normo-active bowel sounds, no masses, no rebound or guarding. BACK: Back is symmetrical on inspection and there is no deformity, no midline tenderness, no CVA tenderness. SKIN: no rashes and no bruising UPPER EXTREMITIES: upper extremities are grossly normal. FROM, nml pulses b/l. LOWER EXTREMITIES: No pitting edema. FROM, nml pulses b/l. NEURO EXAM: Normal sensorium, cranial nerves II-XII grossly intact, normal speech, no gross weakness of arms, no gross weakness of legs. Gross sensation intact. Course Course 2049: Patient still having pain. Placed on a regular patient room. Vital signs stable. Awaiting CT. 0102: Pt states still having pain. Discussed results. Administered Medications Discontinued Medications Aspirin (Aspirin 325 Mg Ectab) 325 mg PO NOW STA Stop: 07/23/22 01:26 Last Admin: 07/23/22 02:35 Dose: 325 mg Documented By: CATHERINE Aspirin (Aspirin 81 Mg Ectab) 81 mg PO DAILY AV Stop: 08/22/22 08:59 Last Admin: 07/23/22 09:28 Dose: 81 mg Documented By: CARLOS Famotidine (Pepcid 20mg Iv Push) 20 mg in 5 mls @ 2.5 mls/min IV NOW STA Stop: 07/22/22 18:28 Last Admin: 07/22/22 19:58 Dose: 2.5 mls/min Documented By: MIGUELITO Acetaminophen (Ofirmev) 1,000 mg in 100 mls @ 400 mls/hr IV NOW STA Stop: 07/22/22 21:04 Last Infusion: 07/22/22 21:57 Dose: 0 mls/hr Documented By: Admin: 07/22/22 21:27 Dose: 400 mls/hr Documented By: MIGUELITO Ioversol (Optiray 300 500ml) 116 ml IV ONCE ONE Stop: 07/22/22 23:08 Last Admin: 07/22/22 23:07 Dose: 116 ml Documented By: BOUCHRA Lorazepam (Lorazepam 2 Mg/1 Ml Vial) 0.5 mg IV NOW STA; Protocol Stop: 07/23/22 02:42 Last Admin: 07/23/22 03:24 Dose: 0.5 mg Documented By: NABIL Nitroglycerin (Nitroglycerin 2% Ointment 30gm Tube) 1 inch EXT Q6H AV Stop: 08/22/22 01:29 Last Admin: 07/23/22 14:28 Dose: 1 inch Documented By: Admin: 07/23/22 09:21 Dose: Not Given Documented By: Admin: 07/23/22 01:48 Dose: 1 inch Documented By: MIGUELITO Medical Decision Making Differential Diagnosis Differential diagnoses includes but is not limited to acute coronary syndrome, myocardial infarction, pericarditis, pulmonary embolus, aortic dissection, pneumonia, pneumothorax, musculoskeletal, shingles, esophageal. Medical Records Attestation: I reviewed the patient's medical records. Home Medications Current Medication List: was personally reviewed by me Laboratory Data Attestation: I reviewed the patient's lab results. Result diagrams: 07/23/22 05:30 07/23/22 05:30 Lab Results 07/22/22 07/22/22 07/22/22 Range/Units 15:50 15:50 15:50 WBC Cancelled RBC Cancelled Hgb Cancelled Hct Cancelled MCV Cancelled MCH Cancelled MCHC Cancelled RDW Std Deviation Cancelled RDW Coeff of Josue Cancelled Plt Count Cancelled MPV Cancelled Immature Gran % (Auto) Cancelled Neut % (Auto) Cancelled Lymph % (Auto) Cancelled [place] % (Auto) Cancelled Eos % (Auto) Cancelled Baso % (Auto) Cancelled Neut # (Auto) Cancelled Lymph # (Auto) Cancelled [place] # (Auto) Cancelled Eos # (Auto) Cancelled Baso # (Auto) Cancelled Immature Gran # (Auto) Cancelled Absolute Nucleated RBC Cancelled Nucleated RBC % (auto) Cancelled Neutrophils % (Manual) Cancelled Band Neutrophils % Cancelled Lymphocytes % (Manual) Cancelled Prolymphocyte % Cancelled Reactive Lymphs % (Man) Cancelled Monocytes % (Manual) Cancelled Eosinophils % (Manual) Cancelled Basophils % (Manual) Cancelled Metamyelocytes % (Man) Cancelled Myelocytes % (Man) Cancelled Promyelocytes % (Man) Cancelled Blast Cells % (Manual) Cancelled Plasma Cell % (Manual) Cancelled Other Cells % Cancelled Nucleated RBC % Cancelled Neutrophils # (Manual) Cancelled Band Neutrophils # Cancelled Total Absolute Neuts Cancelled Lymphocytes # (Manual) Cancelled Prolymphocyte # Cancelled Reactive Lymphs # Cancelled Total Abs Lymphocytes Cancelled Monocytes # (Manual) Cancelled Eosinophils # (Manual) Cancelled Basophils # (Manual) Cancelled Metamyelocytes # (Man) Cancelled Myelocytes # (Manual) Cancelled Promyelocytes # (Man) Cancelled Blast Cells # (Man) Cancelled Plasma Cell # (Manual) Cancelled Other Cells # Cancelled Nucleated RBCs # (Man) Cancelled Hypersegmented Neuts Cancelled Hyposegmented Neuts Cancelled Hypogranular Neuts Cancelled Large Granular Lymphs Cancelled # Lrg Granular Lymphs Cancelled Hairy Cells Cancelled Smudge Cells Cancelled Toxic Granulation Cancelled Toxic Vacuolation Cancelled Dohle Bodies Cancelled Derik Rods Cancelled Platelet Estimate Cancelled Hypogranular Platelets Cancelled Clumped Platelets Cancelled Giant Platelets Cancelled Platelet Satelliting Cancelled RBC Morphology Cancelled Polychromasia Cancelled Hypochromasia Cancelled Poikilocytosis Cancelled Basophilic Stippling Cancelled Anisocytosis Cancelled Microcytosis Cancelled Macrocytosis Cancelled Spherocytes Cancelled Pappenheimer Bodies Cancelled Sickle Cells Cancelled Target Cells Cancelled Tear Drop Cells Cancelled Ovalocytes Cancelled Stomatocytes Cancelled Angel-Muldraugh Bodies Cancelled Echinocytes Cancelled Acanthocytes (Spur) Cancelled Rouleaux Cancelled RBC Agglutinates Cancelled Schistocytes Cancelled Sezary Cell Cancelled PT Cancelled INR Cancelled APTT Cancelled PTT Ratio Cancelled D-Dimer (0-500) ug/L FEU Sodium 140 (136-145) mmol/L Potassium 3.9 (3.5-5.1) mmol/L Chloride 104 (98-107) mmol/L Carbon Dioxide 29 (21-32) mmol/L Anion Gap 7 (3-11) BUN 12 (6-23) mg/dl Creatinine 0.85 (0.6-1.2) mg/dl Est Cr Clr Drug Dosing 66.0 ml/min Est GFR ( Amer) 82.2 ml/min Est GFR (Non-Af Amer) 70.9 ml/min BUN/Creatinine Ratio 14.1 (10-20) Glucose 100 H (70-99(Fasting)) mg/dl Calcium 9.7 (8.5-10.1) mg/dl Magnesium (1.7-2.4) mg/dl Total Bilirubin 0.7 (0.2-1.0) mg/dl AST 20 (13-39) U/L ALT 18 (7-52) U/L Alkaline Phosphatase 98 (34-104) U/L Troponin I High Sens 4.9 (0-14) pg/ml Total Protein 7.8 (6.0-8.3) gm/dl Albumin 4.5 (3.4-5.0) gm/dl Globulin 3.3 (2.5-4.0) gm/dl Albumin/Globulin Ratio 1.4 (0.9-2) TSH (0.300-4.500) uIu/ml SARS-CoV-2, RNA, NAAT (NEGATIVE) Blood Parasites ID Cancelled 07/22/22 07/22/22 07/22/22 Range/Units 20:17 20:17 20:17 WBC RBC Hgb Hct MCV MCH MCHC RDW Std Deviation RDW Coeff of Josue Plt Count MPV Immature Gran % (Auto) Neut % (Auto) Lymph % (Auto) [place] % (Auto) Eos % (Auto) Baso % (Auto) Neut # (Auto) Lymph # (Auto) [place] # (Auto) Eos # (Auto) Baso # (Auto) Immature Gran # (Auto) Absolute Nucleated RBC Nucleated RBC % (auto) Neutrophils % (Manual) Band Neutrophils % Lymphocytes % (Manual) Prolymphocyte % Reactive Lymphs % (Man) Monocytes % (Manual) Eosinophils % (Manual) Basophils % (Manual) Metamyelocytes % (Man) Myelocytes % (Man) Promyelocytes % (Man) Blast Cells % (Manual) Plasma Cell % (Manual) Other Cells % Nucleated RBC % Neutrophils # (Manual) Band Neutrophils # Total Absolute Neuts Lymphocytes # (Manual) Prolymphocyte # Reactive Lymphs # Total Abs Lymphocytes Monocytes # (Manual) Eosinophils # (Manual) Basophils # (Manual) Metamyelocytes # (Man) Myelocytes # (Manual) Promyelocytes # (Man) Blast Cells # (Man) Plasma Cell # (Manual) Other Cells # Nucleated RBCs # (Man) Hypersegmented Neuts Hyposegmented Neuts Hypogranular Neuts Large Granular Lymphs # Lrg Granular Lymphs Hairy Cells Smudge Cells Toxic Granulation Toxic Vacuolation Dohle Bodies Derik Rods Platelet Estimate Hypogranular Platelets Clumped Platelets Giant Platelets Platelet Satelliting RBC Morphology Polychromasia Hypochromasia Poikilocytosis Basophilic Stippling Anisocytosis Microcytosis Macrocytosis Spherocytes Pappenheimer Bodies Sickle Cells Target Cells Tear Drop Cells Ovalocytes Stomatocytes Angel-Muldraugh Bodies Echinocytes Acanthocytes (Spur) Rouleaux RBC Agglutinates Schistocytes Sezary Cell PT 10.3 INR 1.0 APTT 21.7 PTT Ratio 0.8 D-Dimer 790 H* (0-500) ug/L FEU Sodium (136-145) mmol/L Potassium (3.5-5.1) mmol/L Chloride (98-107) mmol/L Carbon Dioxide (21-32) mmol/L Anion Gap (3-11) BUN (6-23) mg/dl Creatinine (0.6-1.2) mg/dl Est Cr Clr Drug Dosing ml/min Est GFR ( Amer) ml/min Est GFR (Non-Af Amer) ml/min BUN/Creatinine Ratio (10-20) Glucose (70-99(Fasting)) mg/dl Calcium (8.5-10.1) mg/dl Magnesium 2.0 (1.7-2.4) mg/dl Total Bilirubin (0.2-1.0) mg/dl AST (13-39) U/L ALT (7-52) U/L Alkaline Phosphatase (34-104) U/L Troponin I High Sens (0-14) pg/ml Total Protein (6.0-8.3) gm/dl Albumin (3.4-5.0) gm/dl Globulin (2.5-4.0) gm/dl Albumin/Globulin Ratio (0.9-2) TSH 1.207 (0.300-4.500) uIu/ml SARS-CoV-2, RNA, NAAT (NEGATIVE) Blood Parasites ID 07/22/22 07/23/22 07/23/22 Range/Units 20:31 00:40 01:36 WBC 8.09 RBC 4.69 Hgb 13.8 Hct 40.3 MCV 85.9 MCH 29.4 MCHC 34.2 RDW Std Deviation 39.8 RDW Coeff of Josue 12.9 Plt Count 205 MPV 10.4 Immature Gran % (Auto) 0.2 Neut % (Auto) 61.8 Lymph % (Auto) 30.5 [place] % (Auto) 6.6 Eos % (Auto) 0.5 Baso % (Auto) 0.4 Neut # (Auto) 5.00 Lymph # (Auto) 2.47 [place] # (Auto) 0.53 Eos # (Auto) 0.04 Baso # (Auto) 0.03 Immature Gran # (Auto) 0.02 Absolute Nucleated RBC Nucleated RBC % (auto) Neutrophils % (Manual) Band Neutrophils % Lymphocytes % (Manual) Prolymphocyte % Reactive Lymphs % (Man) Monocytes % (Manual) Eosinophils % (Manual) Basophils % (Manual) Metamyelocytes % (Man) Myelocytes % (Man) Promyelocytes % (Man) Blast Cells % (Manual) Plasma Cell % (Manual) Other Cells % Nucleated RBC % Neutrophils # (Manual) Band Neutrophils # Total Absolute Neuts Lymphocytes # (Manual) Prolymphocyte # Reactive Lymphs # Total Abs Lymphocytes Monocytes # (Manual) Eosinophils # (Manual) Basophils # (Manual) Metamyelocytes # (Man) Myelocytes # (Manual) Promyelocytes # (Man) Blast Cells # (Man) Plasma Cell # (Manual) Other Cells # Nucleated RBCs # (Man) Hypersegmented Neuts Hyposegmented Neuts Hypogranular Neuts Large Granular Lymphs # Lrg Granular Lymphs Hairy Cells Smudge Cells Toxic Granulation Toxic Vacuolation Dohle Bodies Derik Rods Platelet Estimate Hypogranular Platelets Clumped Platelets Giant Platelets Platelet Satelliting RBC Morphology Polychromasia Hypochromasia Poikilocytosis Basophilic Stippling Anisocytosis Microcytosis Macrocytosis Spherocytes Pappenheimer Bodies Sickle Cells Target Cells Tear Drop Cells Ovalocytes Stomatocytes Angel-Muldraugh Bodies Echinocytes Acanthocytes (Spur) Rouleaux RBC Agglutinates Schistocytes Sezary Cell PT INR APTT PTT Ratio D-Dimer (0-500) ug/L FEU Sodium (136-145) mmol/L Potassium (3.5-5.1) mmol/L Chloride (98-107) mmol/L Carbon Dioxide (21-32) mmol/L Anion Gap (3-11) BUN (6-23) mg/dl Creatinine (0.6-1.2) mg/dl Est Cr Clr Drug Dosing ml/min Est GFR ( Amer) ml/min Est GFR (Non-Af Amer) ml/min BUN/Creatinine Ratio (10-20) Glucose (70-99(Fasting)) mg/dl Calcium (8.5-10.1) mg/dl Magnesium (1.7-2.4) mg/dl Total Bilirubin (0.2-1.0) mg/dl AST (13-39) U/L ALT (7-52) U/L Alkaline Phosphatase (34-104) U/L Troponin I High Sens 8.9 D (0-14) pg/ml Total Protein (6.0-8.3) gm/dl Albumin (3.4-5.0) gm/dl Globulin (2.5-4.0) gm/dl Albumin/Globulin Ratio (0.9-2) TSH (0.300-4.500) uIu/ml SARS-CoV-2, RNA, NAAT NEGATIVE (NEGATIVE) Blood Parasites ID Imaging Data Radiologist's Impression: Chest X-Ray 07/22/22 15:40 SINGLE VIEW CHEST CLINICAL HISTORY: Atypical chest pain FINDINGS: An AP, portable, upright chest radiograph is compared to study dated 03/27/2021 and correlated with chest CT dated 03/01/2021. The cardiomediastinal silhouette is unremarkable noting atherosclerotic calcification of the thoracic aorta. Emphysema and chronic interstitial thickening is similar to previous. The lungs and pleural spaces are clear. No pneumothorax is seen. The skeletal structures are osteopenic. There are healed left-sided rib fracture. IMPRESSION: Emphysematous change with no active disease in the chest. ACT 112: Negative or not required by law. Electronically signed by: Reji Sorenson M.D. 07/22/2022 5:06 PM CTA angio chest with and without dissection: Normal caliber aorta. No dissection. Heart size is normal. No pericardial effusion. No pulmonary embolism. Lungs are clear. No pleural effusion or pneumothorax. No acute osseous abnormality. Radiologist: Devyn Dobbins MD ECG Data Attestation: I personally reviewed and interpreted this ECG as follows: Indication: + chest pain Rate (beats per minute): 63 Rhythm: + normal sinus ECG Intervals/blocks: + Right Bundle branch block and + Normal QT ECG [place]: + Normal ECG ST segments: + Nonspecific ST abnormalities MDM Narrative HEART score 5 An order was placed for continuous cardiac monitoring. The monitor shows a rate of _66__ with _normal sinus_ rhythm. This is a 67-year-old female presented emergency department due to concern for chest pain. Patient with no prior cardiac history. She was initially seen out in triage and labs placed by nursing staff were reviewed with her at that time. Additional imaging ordered. At that time we also reviewed her EKG which did show a right bundle branch block. Patient denies any prior knowledge of EKG abnormalities. She appeared uncomfortable and reported lightheadedness and worsening pain with ambulation. Due to concern for description of symptoms, CT angiography of the chest was ordered. Unfortunately due to the high volume and acuity of the day, was a delay in getting patient over for CT imaging as well as significant time awaiting nighttime radiology read. Patient continued to complain of pain despite slow addition of medications including those for GERD, generalized pain, and ultimately addition of Nitropaste. Labs and imaging were reassuring, patient had persistent pain, elevated heart score, and unclear etiology of her pain. Case was discussed with hospitalist for additional evaluation and management. Repeat troponin pending as a precaution. Impression & Plan Chest pain, Right bundle branch block (RBBB) Discharge Plan Visit Data Chief Complaint: Chest Pain Stated Complaint: CHEST PAIN, JAW PAIN ED Provider: Daja Miguel Discharge Problem: Chest pain, Right bundle branch block (RBBB) Patient Disposition: Admitted As Inpatient Discharge Instructions Interventions: ED Discharge Assessment Last Done: 07/23/22 05:35
[2022-07-22] MEDS ORDERED: FAMOTIDINE 20MG IV PUSH 20 MG/5 ML SYR IV STA (18:27)
[2022-07-22] MEDS ORDERED: ACETAMINOPHEN 1,000 MG/100 ML VIAL IV STA (20:50)
[2022-07-22 20:53] LABS: Partial Thromboplastin Ratio 0.8; Partial Thromboplastin Time 21.7 Seconds (21.0-31.0); Prothrombin Time 10.3 Seconds (9.0-12.0)
[2022-07-22 21:00] LABS: D Dimer 790 ug/L FEU (0-500)
[2022-07-22 21:46] LABS: Basophils # (auto) 0.03 K/uL (0-0.2); Basophils % (auto) 0.4 %; Eosinophils # (auto) 0.04 K/uL (0-0.50); Eosinophils % (auto) 0.5 %; Hematocrit (blood only) 40.3 % (34.1-44.9); Hemoglobin 13.8 g/dl (12.0-16.0); Immature Granulocytes # (auto) 0.02 K/uL (0.00-0.02); Immature Granulocytes % (auto) 0.2 %; Lymphocytes # (auto) 2.47 K/uL (1.2-3.4); Lymphocytes % (auto) 30.5 %; Mean Corpuscular Hemoglobin 29.4 pg (25.0-34.0); Mean Corpuscular Hgb Conc 34.2 g/dL (32.0-36.0); Mean Corpuscular Volume 85.9 fL (80.0-100.0); Mean Platelet Volume 10.4 fL (9.4-12.3); Monocytes # (auto) 0.53 K/uL (0.24-0.82); Monocytes % (auto) 6.6 %; Neutrophils % (auto) 61.8 %; Platelet Count 205 K/uL (130-400); RDW Coefficient of Variation 12.9 % (11.5-14.5); RDW Standard Deviation 39.8 fL (36.4-46.3); Red Blood Count 4.69 M/uL (3.93-5.22); White Blood Count 8.09 K/ul (4.8-10.8)
[2022-07-22] MEDS ORDERED: OPTIRAY 300 500mL IV ONE (23:07)
[2022-07-23] MEDS ORDERED: ASPIRIN 325 MG ECTAB PO STA (01:25)
[2022-07-23] MEDS: NITROGLYCERIN 2% OINTMENT 30GM TUBE EXT SCH ×3 (01:48→14:28)
--- NOTE | 2022-07-23 02:23 | History & Physical Report ---
Date of Service July 23, 2022 Assessment & Plan (1) Chest pain: Plan: 67yo female with a history of HLD, GERD, tobacco dependence, and covid presents with a one-day history of chest pain. Chest pain Initial hsTroponin negative, repeat hsTroponin also negative EKG: NSR, RBBB, nonspecific ST abnormalities but no overt ischemic change Heart score: 5 Cardiology consulted Stress echo ordered Received ASA 325mg in ED; continue ASA 81mg qd Nitro paste prn chest pain EKG prn chest pain HLD: not on medication at home, reason unclear; repeat lipid profile and A1c ordered GERD: not on medication at home Nicotine dependence: patient declines nicotine patch at this time Insomnia: patient reportedly does not tolerate melatonin; ativan 0.5mg IV (one- time dose) ordered FEN: NPO pending cardiology consult Code status: full code DVT ppx: SCDs Consults: cardiology Dispo: med/telemetry (2) GERD (gastroesophageal reflux disease): (3) Insomnia: History of Present Illness Primary Care Provider: Joaquin Palomino MD 67yo female with a history of HLD, GERD, nicotine dependence, and covid presents with a one-day history of chest pain. Symptoms began while patient was walking her dog. Endorses 4/10 central chest pain which radiates to the jaw bilaterally and to the left upper back. Also had mild SOB which has since resolved. Patient tried tums without relief. Denies any known personal or family history of cardiac conditions. Patient reports her pain is currently a 0/10. Patient denies fever, chills, headache, vision changes, palpitations, edema, abdominal pain, nausea, vomiting, dysuria, hematochezia, melena, numbness, tingling, weakness, or other symptoms. Denies recent illness and recent travel. No recent periods of prolonged immobilization. Upon arrival, vitals were notable for elevated BP (160-170s/90-110s); no tachycardia, no tachypnea, patient afebrile, spO2 adequate on room air. Initial labs were notable only for an elevated d-dimer. No leukocytosis, no anemia, platelets wnl, no electrolyte abnormalities, LFTs wnl, TSH wnl, INR wnl, hsTroponin (initial and repeat) negative. In the ED, patient received ASA 325mg (x1), APAP 1000mg IV (x1), famotidine 20mg IV (x1), and was started on nitro paste q6h. EKG: NSR, RBBB, nonspecific ST abnormalities but no overt ischemic change CXR: emphysematous change without active disease CTA chest: no dissection or PE, no pleural effusion or pneumothorax Surrogate decision-maker in case of an emergency: Blanca Torre (cell: [phone]) Allergies Allergy/AdvReac Type Severity Reaction Status Date / Time No Known Allergies Allergy NONE Verified 07/23/22 12:53 Home Medications Medication Instructions Recorded Confirmed Type docusate sodium 100 mg capsule 100 mg PO BID 11/14/18 07/23/22 History albuterol sulfate 90 mcg/actuation 2 puff inhalation UD PRN shortness 02/11/22 07/23/22 Rx aerosol inhaler (ProAir HFA) of breath #8.5 grams Unknown Sleep Aid 1 tab PO HS PRN Sleep 07/23/22 07/23/22 History cholecalciferol (vitamin D3) 25 0 mcg PO DAILY 07/23/22 07/23/22 History mcg (1,000 unit) tablet (Vitamin D3) famotidine 20 mg tablet 20 mg PO BID #30 tabs 07/23/22 Rx multivitamin 2 tab PO DAILY 07/23/22 07/23/22 History Past Med/Surg History Medical History Anxiety history of chest pain with anxiety Cardiac murmur pcp monitors History of COVID-19 01/2021, hospitalized, pneumonia, shortness of breath, loss of taste/smell, light sensitivity, fatigue, weak-symptoms improved, but still having shortn ess of breath/difficulty breathing DENIES CURRENT SYMPTOMS, PT REPORTS ALL RESOLVED Hyperlipidemia DENIES Surgical History History of cholecystectomy (~06/20/15) History of colonoscopy with polypectomy History of left cataract surgery Hx of colonoscopy (04/2008) Hx of LASIK Hx of tubal ligation Family History Sister Ovarian cancer Breast cancer Colorectal cancer Cancer Hypertension Diabetes Brother Colorectal cancer Cancer Father Diabetes Cancer Son Colorectal cancer Mother Dementia Hypertension Denies family history of Prostate cancer Myocardial infarction Social History Smoking Status: Current every day smoker Tobacco Type: E-cigarettes / Vaping Age Started Using Tobacco: 13; Age Quit Using Tobacco: 58; packs per day: 0.5; Years Smoked: 45; Cigarettes Per Day: HX CIGARETTES, DAILY USE VAPE - ADVISED NPO; Number of Years Since Quit: 6; Second Hand Exposure: No; Hx Alcohol Use: No Hx Substance Use: No Preferred Language: Ukrainian Communication Ability: Effective Visual Impairment: No Limitations Hearing Ability: Normal [employer] Ax Consultant Required: No Beliefs That Will Affect Care: None marital status: Current Living Situation: Spouse and Family current occupational status: unemployed Feels Safe at Home: No Is there a partner from a previous relationship who is making you feel unsafe now?: No Dental Care, Regularly: No Physical Activity Frequency: Does not Exercise Seatbelt Use: always Assistive Devices: None Physical Exam Physical Exam: Constitutional: well-appearing, no acute distress HEENT: NCAT, no conjunctival injection CV: regular rhythm, no murmur appreciated, extremities well-perfused, no LE edema Resp: CTABL, no wheezes/rales/rhonchi appreciated, no increased work of breathing GI: soft, nondistended, nontender, BS normoactive MSK: no chest wall or back tenderness Skin: warm, dry, no rash appreciated Neuro: alert, oriented, no focal neurologic deficit appreciated Results & Data Results & Data ([facility]) Vital Signs (Past 12 Hours) Vital Signs Temp Pulse Pulse Resp BP BP Pulse Ox 07/23/22 00:00 58 L 20 164/111 H 97 07/22/22 21:11 98 07/22/22 15:33 36.4 C L 75 18 179/97 H 96 O2 Del Method 07/23/22 00:00 Room Air 07/22/22 21:11 Room Air 07/22/22 15:33 Room Air Supervising Physician Co-Signing Physician Notes Attending addendum: I have physically seen this patient, have supervised the medical residents activities, and agree with the H&P unless as otherwise noted. Assessment and Plan: Chest pain of uncertain etiology- The patient will be admitted to telemetry for serial cardiac enzymes, serial EKG's, cardiac rhythm monitoring and a 2-D echocardiogram with Dopplers. EKG with right bundle branch block and nonspecific ST-T changes Heart score 5 Consult cardiology Chest echo prior to discharge Check a fasting lipid panel and hemoglobin A1c Remaining orders and notations as noted Resident Activity Tracking Resident Involvement: Resident Care Provided and [employer] Coverage Note Care Provided: Adult Hospital Medicine (1) GERD (gastroesophageal reflux disease) Esophagitis presence: esophagitis presence not specified Qualified Code(s): K21.9 - Gastro-esophageal reflux disease without esophagitis
[2022-07-23] MEDS ORDERED: ALBUTEROL HFA 8 GM INHALER INH PRN (02:32)
[2022-07-23] MEDS ORDERED: LORazepam 2 MG/1 ML VIAL IV STA (02:41)
[2022-07-23 05:51] LABS: Hematocrit (blood only) 38.1 % (34.1-44.9); Hemoglobin 13.2 g/dl (12.0-16.0); Mean Corpuscular Hemoglobin 29.4 pg (25.0-34.0); Mean Corpuscular Hgb Conc 34.6 g/dL (32.0-36.0); Mean Corpuscular Volume 84.9 fL (80.0-100.0); Mean Platelet Volume 10.1 fL (9.4-12.3); Platelet Count 195 K/uL (130-400); RDW Coefficient of Variation 12.8 % (11.5-14.5); RDW Standard Deviation 39.2 fL (36.4-46.3); Red Blood Count 4.49 M/uL (3.93-5.22); White Blood Count 6.04 K/ul (4.8-10.8)
--- NOTE | 2022-07-23 05:51 | Electrocardiogram Report ---
Test Reason : Blood Pressure : / mmHG Vent. Rate : 063 BPM Atrial Rate : 063 BPM P-R Int : 142 ms QRS Dur : 136 ms QT Int : 460 ms P-R-T Axes : 055 106 015 degrees QTc Int : 470 ms Normal sinus rhythm Possible Left atrial enlargement Right bundle branch block Septal infarct , age undetermined Abnormal ECG When compared with ECG of 01-MAR-2021 09:08, Septal infarct is now Present Confirmed by Ciro Jaeger ([id number]) on 07/23/2022 5:50:45 AM Referred By: Confirmed By:Ciro Jaeger
[2022-07-23 06:11] LABS: BUN Creatinine Ratio 14.5 (10-20); Chol HDL Ratio 4.9 (0-5); Creatinine Clr Calc Pharmacy 81.2 ml/min; Est GFR (African American) 104.4 ml/min; Est GFR (Non-African American) 90.1 ml/min; Magnesium 1.9 mg/dl (1.7-2.4); Potassium 3.4 mmol/L (3.5-5.1)
[2022-07-23 07:14] LABS: Estimated Average Glucose 111 mg/dl; Hemoglobin A1C 5.5 % (4.5-5.6)
--- NOTE | 2022-07-23 08:43 | CT Scan Report ---
CT angio chest dissec wo/w con CLINICAL HISTORY: cp into back, SOB TECHNIQUE: Multidetector row helical CT of the chest was performed before and after injection of IV c ontrast. Coronal and sagittal reformations were obtained. Automated dose lowering techniques and/or a djustment according to patient size were utilized for this exam. CT DOSE: 624.74 mGy.cm Comparison: None available at the time of this dictation. FINDINGS: Lungs and pleura: Biapical scarring is seen. There is a 3 mm nodule in the right middle lobe (series 4 image 197). Heart and pericardium: Heart size is normal. No pericardial effusion. Vessels: Mild atherosclerotic changes in the aorta and coronary arteries. No aortic dissection is see n. No large pulmonary embolus is seen within the limits of a nondedicated exam. Mediastinum and stephanie: Subcentimeter lymph nodes are seen. Chest wall and lower neck: Small thyroid nodules are noted which do not require follow-up by MICHAEL michaels. Abdomen: Patient is status post cholecystectomy. A splenule is noted. Bones: Unremarkable. IMPRESSION: 1. No acute abnormality and in particular no evidence of acute aortic injury. 2. Punctate nodule in the right middle lobe. According to Fleischner criteria, no follow-up is requi red in low risk patients, in high-risk patients, a 12 month follow-up CT can be optionally performed. ACT 112: Negative or not required by law. Electronically signed by: Abelardo Soler M.D. 07/23/2022 8:42 AM
[2022-07-23] MEDS ORDERED: ASPIRIN 81 MG ECTAB PO SCH (09:00)
--- NOTE | 2022-07-23 13:10 | XCELERA ---
[id number]
--- NOTE | 2022-07-23 21:02 | Discharge Summary ---
Date of Service July 23, 2022 Admission HPI Per Admitting Provider 67yo female with a history of HLD, GERD, nicotine dependence, and covid presents with a one-day history of chest pain. Symptoms began while patient was walking her dog. Endorses 4/10 central chest pain which radiates to the jaw bilaterally and to the left upper back. Also had mild SOB which has since resolved. Patient tried tums without relief. Denies any known personal or family history of cardiac conditions. Patient reports her pain is currently a 0/10. Patient denies fever, chills, headache, vision changes, palpitations, edema, abdominal pain, nausea, vomiting, dysuria, hematochezia, melena, numbness, tingling, weakness, or other symptoms. Denies recent illness and recent travel. No recent periods of prolonged immobilization. Upon arrival, vitals were notable for elevated BP (160-170s/90-110s); no tachycardia, no tachypnea, patient afebrile, spO2 adequate on room air. Initial labs were notable only for an elevated d-dimer. No leukocytosis, no anemia, platelets wnl, no electrolyte abnormalities, LFTs wnl, TSH wnl, INR wnl, hsTroponin (initial and repeat) negative. In the ED, patient received ASA 325mg (x1), APAP 1000mg IV (x1), famotidine 20mg IV (x1), and was started on nitro paste q6h. EKG: NSR, RBBB, nonspecific ST abnormalities but no overt ischemic change CXR: emphysematous change without active disease CTA chest: no dissection or PE, no pleural effusion or pneumothorax Surrogate decision-maker in case of an emergency: yazmin Torre (cell: [phone]) Principal Diagnosis GERD related chest pain Discharge Exam In general she is awake and alert pleasant no distress. HEENT normocephalic atraumatic mucous membranes moist. Breathing unlabored no accessory muscle use good effort. Abdomen is soft but she does have epigastric tenderness no guarding rebound or rigidity. Neuro without focal deficits. Skin without rashes pallor or icterus. Discharge Data Allergies Allergy/AdvReac Type Severity Reaction Status Date / Time No Known Allergies Allergy NONE Verified 07/23/22 12:53 Consultations 07/23/22 02:21 ED Decision to Admit Stat Ordered Studies 07/22/22 20:50 CT angio chest dissec wo/w con Urgent Hospital Course (1) Chest pain: Initially concerning for CAD due to the jaw pain and it being more intense/different than she had experienced before -Serial troponins negative quite reassuring -Stress test quite reassuring -She suffers from nightly GERD and initially her symptoms were very similar to this, it was only whenever they worsened that it got her attention. I suspect that it was just a very bad episode of GERD. -Safe/stable for home. She only currently takes as needed calcium carbonate. Given that there is a nightly occurrencesuggested twice daily H2 minesh for a week, then nightly for the near but foreseeable future. Total Time Total Time Spent Total Time Spent (In Minutes): Less than 30 Discharge Plan Discharge Items Patient Disposition: Home - Self-Care Reason For Visit: CHEST PAIN,SUSPICIOUS HISTORY Discharge Diagnosis: Chest pain due to reflux Activity: Resume your previous activity Non-emergency contact: Primary Care Provider Follow-up/Referrals: Joaquin Palomino MD [Primary Care Provider] - Diet: Regular Addtl Attending Provider Instructions: Chest pain -Given that the symptoms were worse than you have ever felt, and given the radiation to your jawI absolutely agree with your choosing to come to the hospital for further evaluation. -Fortunately, with a very reassuring cardiac evaluation (troponin levels are extremely sensitivewhen they are normal that is super reassuring about no damage or strain on the heart, and a stress test is about 90% as accurate as a heart cath and looking for large blood vessel blockages) I think we can look at this as really an extremely bad case of reflux. Likely the radiation to your jaw was because your upper esophagus sends pain signals back to spinal cord in the same neighborhood of where your jaw does. Actually, this is why a heart attack causes jaw pain as wellthe heart sends pain fibers back into roughly the same area of the spinal cord. That said, again, I would never look at your situation last night, before a full cardiac work-up, and write it off his reflux. Fortunately with hindsight things are very reassuring, and is definitely safe to get you home -Because you get reflux more or less nightly, and because medications like Tums/Rolaids really wear off fairly quickly, I would recommend that we escalate treatment. Get 20 mg famotidine (prescription is sent, but it is an [id number]) and take it twice a day starting todayafter a week, if your reflux is doing better overall, I would recommend reducing it to just at night. If the famotidine does not do the job enough, then we can escalate further to medicines like Prilosec or Protonixbut over the long-term they do start to run into more risks of things like nutrient malabsorption, compared to famotidine type medicines, so it is better to only escalate if we need to. -Follow-up in the bowel Thal in office in the next 1 to 2 weeks so you can check in with them on how you are doing Pending Studies at Discharge: No Stand-Alone Forms: My [facility], Smoking Cessation Medications and DC Order Prescriptions: New famotidine 20 mg tablet 20 mg PO BID Qty: 30 0RF Rx Instructions: 1 po bid x7 days, then 1 po HS Continued albuterol sulfate [ProAir HFA] 90 mcg/actuation HFA aerosol inhaler 2 puff INH UD PRN (Reason: shortness of breath) Qty: 8.5 0RF docusate sodium 100 mg Capsule 100 mg PO BID multivitamin Tablet 2 tab PO DAILY cholecalciferol (vitamin D3) [Vitamin D3] 25 mcg (1,000 unit) Tablet 0 mcg PO DAILY Rx Instructions: take 2 tabs daily Unknown Sleep Aid 1 tab PO HS PRN (Reason: Sleep) Discharge Orders: Discharge Order (Routine); Ordered 07/23/22 Ordered By: Immanuel Narayan Admission Data Admit Date/Time: 07/23/22 02:35 Attending Provider: Immanuel Narayan Admit Provider: Fer Lopez Primary Care Provider: Joaquin Palomino Other Providers: Brannon Baez Other Interventions: Discharge Summary Assessment (RN) Last Done: 07/23/22 15:58 Coding Level of Care Code 80292 OBS Care - Discharge Diagnoses Chest pain R07.9
--- NOTE | 2022-07-23 22:09 | Billing Data ---
Date of Service July 23, 2022 Coding Level of Care Code INT OBSERVATION CARE 70M LVL 3
== END 2022-07-23 16:15 | disposition home or self-care (01) ==
LOC: EDINP 15:29 → ED 15:29 → SUATTDRO 07-23 02:35 → EDINP 07-23 05:35